=== PATIENT | female | born 1970 | race Caucasian/White ===

== ENCOUNTER 2022-06-25 16:15 | Outpatient (CLI) | payer BC, SELFPAY | END 2022-06-25 16:16 | disposition home or self-care (01) | PROVIDERS: PCP Registered Nurse; Visit Provider Registered Nurse | DX: Z01.419 Encounter for gynecological examination (general) (routine) without abnormal findings (principal); L67.9 Hair color and hair shaft abnormality, unspecified; R63.5 Abnormal weight gain; Z13.1 Encounter for screening for diabetes mellitus; Z13.6 Encounter for screening for cardiovascular disorders | CPT/HCPCS: 80061; 82947; 84443 ==

== ENCOUNTER 2022-07-01 15:03 | Outpatient (CLI) | payer BC, SELFPAY ==
[2022-07-01 19:58] LABS: Chlamydia DNA Amplified* NOT DETECTED (No Detected); GC DNA Amplified* NOT DETECTED (No Detected)
== END 2022-07-01 15:04 | disposition home or self-care (01) ==
PROVIDERS: PCP Registered Nurse; Visit Provider Registered Nurse
DX: Z11.3 Encounter for screening for infections with a predominantly sexual mode of transmission (principal)
CPT/HCPCS: 0353U; 87491; 87591

== ENCOUNTER 2022-09-11 07:11 | Day surgery (SDC) | payer BC, SELFPAY ==
[2022-09-11 07:41] LABS: Ur HCG Qualitative* Negative (Negative)
[2022-09-11 07:46] VITALS: BMI 28.8
[2022-09-11 07:49] VITALS: BP 135/75; PULSE 70; RESP 20; TEMP 36.8; O2SAT 98
[2022-09-11 07:51] LABS: Hemoglobin* 13.9 gm/dL (12.0-16.0)
[2022-09-11] MEDS: LACTATED RINGERS 1000 ML 1,000 ML 100 ML IV (08:00)
[2022-09-11] MEDS: SODIUM CHLORIDE 0.9 % (FLUSH) 10 ML SYRINGE IVF (08:01)
[2022-09-11 08:07] LABS: Creatinine* 0.7 mg/dL (0.5-1.5); Est. Creatinine Clearance* 99.37; Estimated Glomerular Filt Rate 105 ml/min
--- NOTE | 2022-09-11 08:58 | W.ANESCHARGE ---
Anesthesia Charges Start Date/Time Anesthesia Start Date: 09/11/22 Anesthesia Start Time: 09:28 Stop Date/Time Anesthesia Stop Date: 09/11/22 Anesthesia Stop Time: 10:52
[2022-09-11] MEDS: VASOPRESSIN 20 UNIT/ML INJ INJECTION (10:02)
[2022-09-11] MEDS: BUPIVACAINE 0.5% 30 ML INJECTION (10:03)
[2022-09-11] MEDS: FERRIC SUBSULFATE 8 GM VIAL 1 VIAL TOPICAL (10:25)
[2022-09-11 10:50] VITALS: BP 132/82; PULSE 72; RESP 20; TEMP 36; O2SAT 98
--- NOTE | 2022-09-11 10:58 | P.GYNPRC_ITS ---
Procedure Note Time Seen by Provider: 08:30 Date Seen: 09/11/22 Procedure Details: COLD KNIFE CONIZATION PROCEDURE NOTE PREOPERATIVE DIAGNOSIS: 1. Cervical dysplasia: HSIL pap, +HPV POSTOPERATIVE DIAGNOSIS: Same PROCEDURE: 1. EUA 2. Colposcopy 3. Cold knife cone 4. ECC 5. Endometrial biopsy SURGEON: Flaquita Suarez MD [employer] REPAIR PERSON: FLOWER Ferrell ANESTHESIA: MAC, local FINDINGS: 1. A 7 week size mobile anteverted uterus, no adnexal masses on EUA 2. Normal external genitalia 3. Colposcopy: satisfactory. Squamocolumnar junction was visualized circumferentially around the cervical os. Mosaicism and punctation noted from 3- 9 o'clock ESTIMATED BLOOD LOSS: 20 cc COMPLICATIONS: None PREOP ANTIBIOTIC: Not indicated SPECIMEN: 1. Conization specimen 2. Endocervical curetting 3. Endometrial curetting INDICATIONS: 52yo G5 P 3023, with diagnosis of high grade cervical dysplasia and +HPV18. Procedure: The patient was taken to the operating room where MAC was administered. She was placed in dorsal lithotomy position in candy cane stirrups, taking care to avoid lower extremity hyperextension, hyperflexion or compression. A surgical time-out was performed with the entire operative staff per protocol. The grounding pad is placed on her thigh. The cervix was then painted with Lugol's Solution and the lesion borders visualized. EUA revealed the above findings. She was prepared and draped in normal sterile fashion for the cervical conization procedure. A sterile speculum was inserted into the vagina to visualize the cervix. A paracervical block was performed with 10 cc of 1% lidocaine. The cervix was infiltrated with 10 cc of dilute vasopressin in a circumferential fashion creating a wheal under the mucosa. 0-vicryl stay stitches were placed at 3 and 9 o'clock. 12 o'clock was marked with a stitch and used for traction. An 11 blade was used to remove the entire circumference of lesion of the cervix. ECC was performed. Endometrial biopsy with endometrial pipelle and banjo curette was also performed. For hemostasis, the ball tip electrode was then attached and the unit set to coagulate and the base of the cervix and endocervix were cauterized. Additional hemostasis was provided with application of Monsel's solution to the cervix. All instruments were removed. Specimens were sent to pathology (cervical cone, ECC and endometrial biopsy) The patient tolerated the procedure well. Sponge, lap and needle counts were correct x 2. The patient was taken to the recovery room in stable condition.
[2022-09-11 11:05] VITALS: BP 132/82; PULSE 48; RESP 16; O2SAT 97
[2022-09-11 11:20] VITALS: BP 123/88; PULSE 55; RESP 16; TEMP 36.4; O2SAT 97
[2022-09-11 11:38] VITALS: BP 122/87; PULSE 58; RESP 16; O2SAT 98
[2022-09-11 12:00] VITALS: BP 118/85; PULSE 54; RESP 16; TEMP 36.4; O2SAT 98
--- NOTE | 2022-09-19 13:57 | W.ANESCHARGE ---
Anesthesia Charges Start Date/Time Anesthesia Start Date: 09/11/22 Anesthesia Start Time: 09:28 Stop Date/Time Anesthesia Stop Date: 09/11/22 Anesthesia Stop Time: 10:52
== END 2022-09-11 12:09 | disposition home or self-care (01) ==
PROVIDERS: PCP Registered Nurse; Visit Provider Obstetrics & Gynecology
PROC: 0UBC7ZZ Excision of Cervix, Via Natural or Artificial Opening (ICD-10-PCS; CPT 57520; principal; 2022-09-11 08:45)
DX: C53.0 Malignant neoplasm of endocervix (principal); R87.613 High grade squamous intraepithelial lesion on cytologic smear of cervix (HGSIL)
CPT/HCPCS: 57520; 00940; 36415; 81025; 82565; 85018; 88305; 88307; 88342; A9270; J2250; J2704; J3010; J3490; J7120

== ENCOUNTER 2022-09-26 14:33 | Outpatient (CLI) | payer BC, SELFPAY ==
--- NOTE | 2022-09-26 15:00 | CRLHL7_ITS ---
For Patients: As a result of the Century Cures Act, medical imaging exams and procedure reports are released immediately into your electronic medical record. You may view this report before your referring provider. If you have questions, please contact your health care provider. CLINICAL INFORMATION: Malignant neoplasm of the cervix/uterus. TECHNIQUE: Contrast-enhanced CT of the chest, abdomen and pelvis was obtained. Coronal and sagittal reformatted images were obtained. Contrast: 95 mL of Isovue 370 intravenous contrast was injected uneventfully prior to image acquisition. Radiation Dose Estimate (Total Exam DLP): 1107 mGy-cm. COMPARISON: None. FINDINGS: Chest: Thyroid: Multiple hypoattenuated right thyroid nodules measuring up to 7 mm. Lungs: 4 mm right middle lobe pulmonary nodule (series 3, image 55). 4 mm calcified granuloma in the lingula. Mild bibasilar dependent atelectatic changes. No focal airspace opacities or pleural effusions. Heart/Pericardium: Unremarkable. Lymph Nodes: No significant axillary, mediastinal, or hilar lymphadenopathy. Abdomen/Pelvis: Liver: Noncirrhotic morphology. Mild intrahepatic bile duct distention may represent reservoir effect in post cholecystectomy state. Gallbladder: Absent. Spleen: Unremarkable. Adrenal glands: Mild left adrenal gland thickening without discrete nodule. Kidneys: Enhance symmetrically without hydronephrosis. 1.4 cm left upper pole cyst. Pancreas: Unremarkable. Lymph nodes: No retroperitoneal, mesenteric, inguinal, or pelvic adenopathy by CT criteria. Vascular: Abdominal aorta normal in caliber. Bowel: Evaluation is limited without enteric contrast. Grossly unremarkable. Urinary bladder: Limited evaluation due to underdistention. No gross pathology. Reproductive structures: Intrauterine device is present. No abdominal/pelvis ascites or free intraperitoneal air. Musculoskeletal: Visualized osseous structures demonstrate degenerative changes in the spine. No focal lytic or blastic lesions. IMPRESSION: 1. 4 mm right middle lobe pulmonary nodule which is technically indeterminate. Recommend follow-up evaluation with chest CT in 3-6 months to assure stability. 2. Otherwise no evidence of metastatic disease in the chest, abdomen, and pelvis. Please note that all CT scans at this facility use dose modulation, iterative reconstruction, and/or weight-based dosing when appropriate to reduce radiation dose to as low as reasonably achievable. Dictated by Juan Luis Earl MD @ 09/27/2022 3:52:14 PM (Electronically Signed)
== END 2022-09-26 14:34 | disposition home or self-care (01) ==
LOC: CT 14:34
PROVIDERS: PCP Nurse Practitioner Family; Visit Provider Obstetrics & Gynecology
DX: C53.9 Malignant neoplasm of cervix uteri, unspecified (principal); R91.8 Other nonspecific abnormal finding of lung field
CPT/HCPCS: 71260; 74177; Q9967

== ENCOUNTER 2022-10-06 09:02 | Outpatient (CLI) | payer BC, SELFPAY | END 2022-10-06 09:03 | disposition home or self-care (01) | PROVIDERS: PCP Nurse Practitioner Family; Visit Provider Nurse Practitioner Family | DX: Z01.818 Encounter for other preprocedural examination (principal) | CPT/HCPCS: 80048 ==

== ENCOUNTER 2022-10-08 09:25 | Outpatient (CLI) | payer BC, SELFPAY ==
--- NOTE | 2022-10-08 09:45 | CRLHL7_ITS ---
For Patients: As a result of the Cures Act, medical imaging exams and procedure reports are released immediately into your electronic medical record. You may view this report before your referring provider. If you have questions, please contact your health care provider. INDICATION: Follow-up thyroid nodules identified on a recent CT of September 26, 2022. TECHNIQUE: Directed thyroid ultrasound. FINDINGS: The right thyroid lobe measures 4.7 x 1.6 x 1.7 cm. The left thyroid lobe measures 5.4 x 1.4 x 1.4 cm. The isthmus measures 0.2 cm in thickness. There are multiple small bilateral thyroid nodules. The largest on the right is in the superior pole measuring 1.4 x 0.9 x 1.2 cm, largely solid, well-circumscribed and relatively homogeneously isoechoic. Adjacent to this larger nodule is a 9 x 4 x 7 mm solid, well-circumscribed nodule. Within the inferior pole, there is a 7 x 7 x 7 mm well-circumscribed solid nodule, isoechoic. Within the left thyroid gland, the largest nodule is in the upper pole measuring 1.2 x 0.6 x 1.1 cm and is both cystic and solid but relatively isoechoic to slightly hypoechoic. Within the inferior left thyroid gland, there are two adjacent solid nodules, each of which measure up to 8 mm. IMPRESSION: 1. Multiple bilateral thyroid lobe nodules, two on the right measuring less than 1 cm and two on the left measuring less than 1 cm. 2. The largest nodule in the superior pole on the right measures up to 1.4 cm and on the left in the superior pole 1.2 cm. TI-RADS 3 for the upper pole right thyroid lobe nodule. TI-RADS 2 for the upper pole left thyroid lobe nodule. ACR TI-RADS [email or web address] TR1: Benign No FNA TR2: Not Suspicious No FNA TR3: Mildly Suspicious FNA if greater than or equal to 2.5 cm Follow if greater than or equal to 1.5 cm TR4: Moderately Suspicious FNA if greater than or equal to 1.5 cm Follow if greater than or equal to 1 cm TR5: Highly Suspicious FNA if greater than or equal to 1 cm Follow if greater than or equal to 0.5 cm Dictated by Lawrence Ugarte MD @ 10/08/2022 12:04:57 PM (Electronically Signed)
== END 2022-10-08 09:26 | disposition home or self-care (01) ==
LOC: US 09:26
PROVIDERS: PCP Nurse Practitioner Family; Visit Provider Nurse Practitioner Family
DX: E04.1 Nontoxic single thyroid nodule (principal)
CPT/HCPCS: 76536

== ENCOUNTER 2023-01-26 15:07 | Outpatient (CLI) | payer BC, SELFPAY ==
--- NOTE | 2023-01-26 15:00 | CRLHL7_ITS ---
For Patients: As a result of the Century Cures Act, medical imaging exams and procedure reports are released immediately into your electronic medical record. You may view this report before your referring provider. If you have questions, please contact your health care provider. INDICATION: History of cervical cancer. Follow-up pulmonary nodules on prior chest CT. TECHNIQUE: Contrast-enhanced chest CT with coronal and sagittal reformations. 75 mL Isovue-370. COMPARISON: 09/26/2022. FINDINGS: Few subcentimeter hypoattenuating thyroid nodules unchanged. Normal course and caliber of the thoracic aorta. Normal caliber main pulmonary artery. No significant coronary artery calcification. Normal heart size. Normal esophagus. No mediastinal or axillary lymphadenopathy. Central airways are patent. No pleural effusion or pneumothorax. No pulmonary opacities. 4 mm right middle lobe pulmonary nodule (series 3, image 55) unchanged. Calcified granuloma left upper lobe (series 3, image 39) unchanged. No new or enlarging pulmonary nodule. Limited images of the upper abdomen are unremarkable. No acute or aggressive osseous abnormality. IMPRESSION: 1. Stable 4 mm right middle lobe pulmonary nodule. No new or enlarging pulmonary nodules. 2. Otherwise, no evidence of metastatic disease in the chest. Please note that all CT scans at this facility use dose modulation, iterative reconstruction, and/or weight-based dosing when appropriate to reduce radiation dose to as low as reasonably achievable. Dictated by Jose Francisco Avitia MD @ 01/28/2023 7:56:01 AM (Electronically Signed)
== END 2023-01-26 15:08 | disposition home or self-care (01) ==
PROVIDERS: PCP Nurse Practitioner Family
DX: C53.9 Malignant neoplasm of cervix uteri, unspecified (principal); R91.8 Other nonspecific abnormal finding of lung field
CPT/HCPCS: 71260; Q9967

== ENCOUNTER 2023-03-04 08:53 | Outpatient (CLI) | payer BC, SELFPAY ==
--- NOTE | 2023-03-04 08:45 | CRLHL7_ITS ---
For Patients: As a result of the Century Cures Act, medical imaging exams and procedure reports are released immediately into your electronic medical record. You may view this report before your referring provider. If you have questions, please contact your health care provider. Indication: Abdominal pain Technique: Grayscale and color Doppler ultrasound of the right lower abdominal wall in the area of concern. Comparison: CT 09/26/2022 Findings: Targeted sonogram demonstrates a hernia defect containing a loop of bowel within the right lower abdominal wall. There any defect measures approximately 8 millimeters and the hernia itself measures approximately 4 centimeters. No abnormal vascularity. Impression: Right-sided abdominal wall hernia containing bowel loops. Dictated by Frederic Christina MD @ 03/04/2023 10:40:01 AM (Electronically Signed)
== END 2023-03-04 08:54 | disposition home or self-care (01) ==
LOC: US 08:53
PROVIDERS: PCP Nurse Practitioner Family; Visit Provider Registered Nurse
DX: R10.9 Unspecified abdominal pain (principal); K43.9 Ventral hernia without obstruction or gangrene
CPT/HCPCS: 76705

== ENCOUNTER 2023-03-24 09:40 | Outpatient (CLI) | payer BC, SELFPAY | END 2023-03-24 09:41 | disposition home or self-care (01) | PROVIDERS: PCP Nurse Practitioner Family; Visit Provider Nurse Practitioner Family | DX: Z01.818 Encounter for other preprocedural examination (principal) | CPT/HCPCS: 80053; 85025 ==

== ENCOUNTER 2023-03-30 09:52 | Outpatient (CLI) | payer BC, SELFPAY ==
--- NOTE | 2023-03-30 10:00 | CRLHL7_ITS ---
For Patients: As a result of the Century Cures Act, medical imaging exams and procedure reports are released immediately into your electronic medical record. You may view this report before your referring provider. If you have questions, please contact your health care provider. INDICATION: Pulmonary nodule TECHNIQUE: CT chest without contrast. COMPARISON: CT 01/26/2023 FINDINGS: Small thyroid nodules. Cardiovascular structures: Heart size is normal. Thoracic aorta and main pulmonary artery are normal in caliber. Mediastinum and ned: No sign of mass or adenopathy. Lungs: Bandlike opacity left lung apex unchanged likely reflects an area of scarring A granuloma in the left upper lobe 4 millimeter right middle lobe nodule on is unchanged. Pleura and pericardium: No effusions. Chest wall and axilla: No mass or adenopathy. Bones: No significant findings. Upper abdomen: Cholecystectomy low-attenuation lesion left kidney incompletely assessed may represent a cyst IMPRESSION: 4 millimeter right middle lobe nodule unchanged. No new nodules are seen. [employer] SOLID NODULES: SINGLE LOW RISK - Nodule less than 6 mm: No routine follow-up. - Nodule 6-8 mm: CT at 6-12 months, then consider CT at 18-24 months. - Nodule greater than 8 mm: Consider CT at 3 months, PET-CT or tissue sampling. SINGLE HIGH RISK - Nodule less than 6 mm: Optional CT at 12 months. - Nodule 6-8 mm: CT at 6-12 months, then CT at 18-24 months. - Nodule greater than 8 mm: Consider CT at 3 months, PET-CT or tissue sampling. MULTIPLE LOW RISK - Nodule less than 6 mm: No routine follow-up. - Nodule 6-8 mm: CT at 3-6 months, then consider CT at 18-24 months. - Nodule greater than 8 mm: CT at 3-6 months, then consider CT at 18-24 months. MULTIPLE HIGH RISK - Nodule less than 6 mm: Optional CT at 12 months. - Nodule 6-8 mm: CT at 3-6 months, then at 18-24 months. - Nodule greater than 8 mm: CT at 3-6 months, then at 18-24 months. [employer]UID[employer] SUBSOLID NODULES: GROUND GLASS - Nodule less than 6 mm: No routine follow-up. - Nodule greater than 6 mm: CT at 6-12 months to confirm persistence, then CT every 2 years until 5 years. PART SOLID - Nodule less than 6 mm: No routine follow-up. - Nodule greater than 6 mm: CT at 3-6 months to confirm persistence. If unchanged and solid component remains less than 6 mm, annual CT should be performed for 5 years. MULTIPLE - Nodule less than 6 mm: CT at 3-6 months. If stable, consider CT at 2 and 4 years. - Nodule greater than 6 mm: CT at 3-6 months. Subsequent management based on the most suspicious nodule(s). Please note that all CT scans at this facility use dose modulation, iterative reconstruction, and/or weight-based dosing when appropriate to reduce radiation dose to as low as reasonably achievable. Dictated by Diane Loco MD @ 04/01/2023 7:05:19 AM (Electronically Signed)
== END 2023-03-30 09:53 | disposition home or self-care (01) ==
LOC: CT 09:53
PROVIDERS: PCP Nurse Practitioner Family; Visit Provider Registered Nurse
DX: R91.1 Solitary pulmonary nodule (principal); R91.8 Other nonspecific abnormal finding of lung field
CPT/HCPCS: 71250

== ENCOUNTER 2023-04-02 08:10 | Day surgery (SDC) | payer BC, SELFPAY ==
[2023-04-02] VITALS (16 sets, daily range): BP systolic 111–148; BP diastolic 70–92; PULSE 49–74; RESP 12–18; TEMP 36.3–36.6; O2SAT 92–100; BMI 29.3
[2023-04-02] MEDS: LACTATED RINGERS 1000 ML 1,000 ML 100 ML IV (08:25)
[2023-04-02] MEDS: SODIUM CHLORIDE 0.9 % (FLUSH) 10 ML SYRINGE IVF (08:25)
--- NOTE | 2023-04-02 09:53 | W.PM.H&PU ---
History & Physical Update History & Physical Update H&P Reviewed and patient assessed: No changes noted
[2023-04-02] MEDS: CLINDAMYCIN 900 MG/50 ML-D5W IVPB (10:20)
[2023-04-02] MEDS: BUPIVACAINE 0.25% 30 ML INJECTION (10:26)
--- NOTE | 2023-04-02 10:36 | W.ANESCHARGE ---
Anesthesia Charges Start Date/Time Anesthesia Start Date: 04/02/23 Anesthesia Start Time: 10:02 Stop Date/Time Anesthesia Stop Date: 04/02/23 Anesthesia Stop Time: 12:37
--- NOTE | 2023-04-02 10:37 | P.NB_ITS ---
Nerve Block Nerve Block Time Seen by Provider: 10:08 Date Seen: 04/02/23 Type of block requested by surgeon for post-operative analgesia: TAP Side: bilateral Time out performed: Yes Verification of patient name: Yes Verification of date of : Yes Site marking: site marked Name of person performing procedure: Dyllan Continuous monitoring Was continuous monitoring of O2 sat, B/P, cardiac sonographer, recorded every 15 minutes?: Yes Procedure Checklist: sterile prep, needles and gloves Ultrasound guided. Images saved: Yes Medications given in 5ml increments after negative aspiration: Marcaine %: 0.25 mL: 30 Needle gauge: 20 and Exparel mL: 10 Patient tolerated procedure well: Yes Additional comments: Needle noted between internal oblique and transversus abdominus. Local spread visualized Block Charges Block Charge (with Pro Fee): TAP Bilateral Use of Ultrasound Machine for Block: Yes- US Guidance/pain block
--- NOTE | 2023-04-02 12:44 | W.ANESCHARGE ---
Anesthesia Charges Start Date/Time Anesthesia Start Date: 04/02/23 Anesthesia Start Time: 10:02 Stop Date/Time Anesthesia Stop Date: 04/02/23 Anesthesia Stop Time: 12:37
--- NOTE | 2023-04-02 12:50 | P.GSOP_ITS ---
Operative Note Date of procedure: 04/02/23 Pre-op diagnosis: Incisional hernia Post-op diagnosis: Same Type of Procedure: Laparoscopic repair of 6 cm incisional hernia with mesh. Indications: The patient is a 53-year-old female who underwent a hysterectomy last summer. She recently developed an abdominal wall bulge and was clinically found to have a hernia. After discussion of options, because she is fairly symptomatic from the hernia, she elected to have this repaired. Procedure Description: After discussing the risks and benefits of the procedure, the patient signed informed consent.? The operative site was marked and the patient was brought to the operating room and placed on the operating table in supine position.? Care was taken to pad the patient's pressure points.?? The patient was then intubated by anesthesia.??A tap block was performed by Anesthesia for intraoperative and postoperative pain control. Please see their notes for details. The operative site was then prepped and draped in the usual sterile fashion.? A time-out was then performed. Entrance to the abdomen was gained in the left upper quadrant using a Visiport technique. The abdomen was insufflated and briefly surveyed. There were no signs of injury. There was a sizable hernia in the expected location. A small amount of omental fat was adherent to this. A 5 mm port was placed in the left lateral abdomen. Through this a scissor was used to take down the filmy omental adhesions to the abdominal wall. I was then able to use a grasper to bluntly dissect out the remaining adhesions from the anterior abdominal wall, exposing the hernia as well as the superior aspect of the incision. I placed an additional port in the left lower abdomen. This was done under direct vision as well. The hernia measured 6 cm wide by 3 cm long. This was near the umbilicus, just to the right of it. The at the superior aspect of the patient's surgical incision, below the hernia the fascia did appear to be thinning and bowed out slightly. This was not a true hernia, however the fascia appeared to be weakend here. Next, I grasped the hernia sac from within the hernia and incised this using cautery. Using LigaSure, I removed the hernia sac from within the hernia. This was removed from the abdomen and discarded. Using V lock suture, I decreased the intra-abdominal pressure and closed the fascial defect in a running fashion with 2 separate sutures. Once that was done, I obtained a piece of Ventralight ST mesh with [employer] positioning System. I used a 15 x 20 cm piece of mesh, however this was trimmed to be approximately 15 cm in circumference. This allowed appropriate overlap over the lateral edges of the hernia and also covers the superior aspect of the incision where the fascia appeared weakend and bowed out in the midline. This was advanced into the abdomen after up sizing the lateral port to a 10 mm port. A skin yousif was created in the center of the desired area of mesh placement and a Lefty-Alexandra device was used to grasp the suture to position the mesh appropriately overlying the hernia as well as overlapping the superior incision just below the hernia. It was noted that the 10 mm port site sat underneath the mesh so prior to tacking the port in place, I removed the 10 mm port and closed the fascial opening with a Lefty-Alexandra device using 0 Vicryl suture. Once this was done, an absorbable Tacker was then used to tack the mesh in place circumferentially. Of note, before tacking the mesh in place the intra-abdominal pressure was decreased to 9 mm Hg. Appropriately affixing the mesh to the abdominal wall did necessitate placement of an additional 5 mm port in the right abdomen. The mesh appeared to lay flat at the end of the procedure. Hemostasis appeared excellent. The abdomen was desufflated and the ports removed. The incisions were closed with 4-0 Monocryl suture and glue was applied. The patient was then woken and transported to the recovery area in stable condition. ? The patient tolerated the procedure well. Findings: 3 x 6 cm ventral hernia at the superior aspect of the patient's incision, with an additional area of narrowing and bowing out just inferior to this. Anesthesia: GETA Surgeon: Emma Kirkpatrick MD Estimated blood loss (mL): 5 Condition: stable Disposition: PACU
[2023-04-02] MEDS: fentaNYL 100 MCG/2 ML inj 50 MCG IVP ×2 (12:54→12:59)
[2023-04-02] MEDS: HYDROCODONE-ACETAMIN 5-325 MG 1 TAB PO (14:05)
[2023-04-02] MEDS: KETOROLAC 15 MG/ML inj IVP (14:05)
== END 2023-04-02 15:10 | disposition home or self-care (01) ==
PROVIDERS: PCP Nurse Practitioner Family; Visit Provider Surgery
PROC: 0WQF4ZZ Repair Abdominal Wall, Percutaneous Endoscopic Approach (ICD-10-PCS; CPT 49593; principal; 2023-04-02 10:45)
DX: K43.2 Incisional hernia without obstruction or gangrene (principal); G89.18 Other acute postprocedural pain
CPT/HCPCS: 49593; 00832; 64488; 76942; A4467; A9270; C1781; C9290; J0330; J0461; J0665; J0736; J1885; J2250; J2371; J2704; J3010; J7120

== ENCOUNTER 2023-06-30 14:36 | Outpatient (CLI) | payer BC, SELFPAY ==
--- NOTE | 2023-06-30 14:40 | MM_ITS ---
Patient: ROGER BOOKER Facility:?[facility] Patient ID:?[id number] Site Patient ID:?[id number]. Site :?[id number] Study:?XRay-Brachial Plexus Bilateral 3D screening mammogram -06/30/2023 2:57:56 PM Ordering Physician:Nieves Final Report: BILATERAL SCREENING MAMMOGRAM WITH COMPUTER-AIDED DETECTION AND TOMOSYNTHESIS TECHNIQUE: CC and MLO views were obtained. These mammographic images have been obtained using full-field digital technique. These mammographic images were interpreted with the benefit of computer-aided detection. Breast Tomosynthesis was used in this interpretation. COMPARISON FILM: Baseline. FINDINGS: There are scattered areas of fibroglandular density. IMPRESSION: There is no radiographic evidence for malignancy. ASSESSMENT: BI-RADS Category 2: Benign RECOMMENDATION: Routine screening mammogram in 1 year. A lay language report of this examination will be provided to the patient. Frederic Christina M.D. Diagnostic Radiologist [email or web address] LYN/sp R& Transcribed: 4:30 p.m. SP/Dictated by: Frederic Christina MD @ 07/01/2023 11:11:00 AM Signed by:?Frederic Christina MD @07/02/2023 5:30:00 AM (Electronic Signature)
== END 2023-06-30 14:37 | disposition home or self-care (01) ==
LOC: MAMMO 14:37
PROVIDERS: PCP Nurse Practitioner Family; Visit Provider Nurse Practitioner Family
DX: Z12.31 Encounter for screening mammogram for malignant neoplasm of breast (principal)
CPT/HCPCS: 77063; 77067

== ENCOUNTER 2023-08-10 07:20 | Outpatient (CLI) | payer BC, SELFPAY ==
--- NOTE | 2023-08-10 08:55 | W.ANESCHARGE ---
Anesthesia Charges Start Date/Time Anesthesia Start Date: 08/10/23 Anesthesia Start Time: 08:21 Stop Date/Time Anesthesia Stop Date: 08/10/23 Anesthesia Stop Time: 08:45
--- NOTE | 2023-08-10 09:13 | W.ANESCHARGE ---
Anesthesia Charges Start Date/Time Anesthesia Start Date: 08/10/23 Anesthesia Start Time: 08:21 Stop Date/Time Anesthesia Stop Date: 08/10/23 Anesthesia Stop Time: 08:45
== END 2023-08-10 07:21 | disposition home or self-care (01) ==
LOC: OP CLINIC 07:20
PROVIDERS: PCP Nurse Practitioner Family; Visit Provider Surgery
DX: Z12.11 Encounter for screening for malignant neoplasm of colon (principal); K64.8 Other hemorrhoids; K57.30 Diverticulosis of large intestine without perforation or abscess without bleeding
CPT/HCPCS: 00811; 00812; 45378; J2704

== ENCOUNTER 2023-11-09 10:13 | Outpatient (CLI) | payer BC, SELFPAY ==
--- NOTE | 2023-11-09 10:15 | CRLHL7_ITS ---
For Patients: As a result of the Cures Act, medical imaging exams and procedure reports are released immediately into your electronic medical record. You may view this report before your referring provider. If you have questions, please contact your health care provider. INDICATION: Thyroid nodule COMPARISON: 08/19/2023, 06/15/2023 TECHNIQUE: Renee scale and color Doppler images were acquired of the thyroid gland. FINDINGS: Solid and cystic nodule left thyroid lobe, TR 3, measures 11 x 5 x 9 millimeters. Mostly solid nodule left thyroid lobe inferior pole measures 10 x 8 x 9 millimeters, TR 4. Hypoechoic nodule left thyroid lobe measures 9 x 5 x 7 millimeters, TR 4. Also solid nodule right thyroid lobe measures 10 x 6 x 7 millimeters, TR 4. Slightly hyperechoic nodule right thyroid lobe measures 8 x 6 x 5 millimeters, TR 3. Mostly solid nodule inferior pole right thyroid lobe previously biopsied measures 1.4 x 1.4 x 1.1 cm, previously measuring 1.5 x 1.7 x 1.9 cm. The right lobe measures 5.6 x 1.7 x 2.0 cm and the left lobe measures 5.9 x 1.4 x 1.9 cm in size. The color Doppler images demonstrate normal vascularity. There is no evidence of cervical lymphadenopathy or parathyroid mass. IMPRESSION: Stable bilateral thyroid nodules. Dictated by Frederic Christina MD @ 11/09/2023 11:35:35 AM (Electronically Signed)
== END 2023-11-09 10:14 | disposition home or self-care (01) ==
LOC: US 10:13
PROVIDERS: PCP Nurse Practitioner Family; Visit Provider Nurse Practitioner Family
DX: E04.1 Nontoxic single thyroid nodule (principal)
CPT/HCPCS: 76536

== ENCOUNTER 2024-01-04 07:44 | Outpatient (CLI) | payer BC, SELFPAY ==
--- NOTE | 2024-01-04 08:00 | CRLHL7_ITS ---
For Patients: As a result of the Century Cures Act, medical imaging exams and procedure reports are released immediately into your electronic medical record. You may view this report before your referring provider. If you have questions, please contact your health care provider. INDICATION: Right lower quadrant abdominal pain, evaluate for cancer recurrence TECHNIQUE: CT chest, abdomen and pelvis acquired with 97 mL Isovue 370 contrast. COMPARISON: 03/30/[address], 01/26/[address], 09/26/[address] FINDINGS: CHEST: Cardiovascular structures: Heart size is normal. Thoracic aorta and main pulmonary artery are normal in caliber. Mediastinum and ned: No mass or adenopathy. Mildly heterogeneous thyroid as before. Lungs and pleura: Stable 3-4 mm nodule lateral right upper lobe image 59. Benign calcified granuloma in the left upper lobe. No new nodules. Chest wall and axilla: No mass or adenopathy. Bones: No suspicious bone lesions. Unremarkable for age. ABDOMEN AND PELVIS: Liver: Unremarkable. Gallbladder and bile ducts: Cholecystectomy. Pancreas: Unremarkable. Spleen: Unremarkable. Adrenal glands: Unremarkable. Kidneys: Left renal cyst. 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 Vascular structures: Unremarkable. Lymph nodes: Unremarkable. Miscellaneous: Ventral hernia repair. Pelvic Organs: Hysterectomy. Bones: No suspicious bone lesions. Unremarkable for age. IMPRESSION: 1. No evidence for recurrent or metastatic disease. 2. Congenital malrotation of the bowel. Please note that all CT scans at this facility use dose modulation, iterative reconstruction, and/or weight-based dosing when appropriate to reduce radiation dose to as low as reasonably achievable. Dictated by Julio Obando MD @ 01/05/2024 12:38:03 PM (Electronically Signed)
== END 2024-01-04 07:45 | disposition home or self-care (01) ==
PROVIDERS: PCP Nurse Practitioner Family; Visit Provider Nurse Practitioner Family
DX: R10.31 Right lower quadrant pain (principal); Q43.3 Congenital malformations of intestinal fixation
CPT/HCPCS: 71260; 74177; Q9967

== ENCOUNTER 2024-01-11 12:54 | Emergency (ER) | payer BC, SELFPAY ==
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
[2024-01-11 13:10] VITALS: BP 141/88; PULSE 80; RESP 16; TEMP 36.6; O2SAT 97; BMI 28.0
--- NOTE | 2024-01-11 13:30 | CRLHL7_ITS ---
For Patients: As a result of the Century Cures Act, medical imaging exams and procedure reports are released immediately into your electronic medical record. You may view this report before your referring provider. If you have questions, please contact your health care provider. Indication: L SIDED ABD PAIN. VOMITING Technique: CT abdomen/pelvis with IV contrast, 95 mL Isovue 370 Comparison: CT chest/abdomen/pelvis on January 04, 2024 Findings: LOWER THORAX: No acute abnormality. Stable 3-4 mm solid pulmonary nodule in the right middle lobe. ABDOMEN AND PELVIS: Liver: Unremarkable. Gallbladder and bile ducts: Cholecystectomy. No significant biliary ductal dilatation. Pancreas: Unremarkable. Spleen: Unremarkable. Adrenal glands: Unremarkable. Kidneys: Stable simple appearing left renal cyst. No renal calculi or hydronephrosis. GI tract: No evidence of bowel obstruction or inflammation. 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 Vascular structures: Unremarkable. Lymph nodes: Unremarkable. Miscellaneous: Prior ventral abdominal wall hernia repair. Pelvic Organs: Hysterectomy. Bones: No suspicious bone lesions. Unremarkable for age. Impression: No CT evidence of an acute process involving the abdomen or pelvis. Please note that all CT scans at this facility use dose modulation, iterative reconstruction, and/or weight-based dosing when appropriate to reduce radiation dose to as low as reasonably achievable. Dictated by Marlon Sahu MD @ 01/11/2024 3:09:23 PM (Electronically Signed)
[2024-01-11 13:56] LABS: Lactate* 0.8 mmol/L (0.5-1.9)
[2024-01-11 14:04] LABS: Appearance Urine Clear (Clear); Bilirubin Urine Negative (Negative); Blood Urine Trace-intact (Negative); Color Urine Yellow (Yellow); Glucose Urine Negative (Negative); Ketones Urine Negative (Negative); Leukocyte Esterase Urine Negative (Negative); Nitrite Urine Negative (Negative); Protein Urine Negative (Negative); Urobilinogen Urine 0.2 (0.2-1.0); pH Urine 5.5 (5.0-8.5)
[2024-01-11 14:16] LABS: RBC Urine 0-2 (0-2); Squamous Epithelial Cell Urine Few (None-Few); WBC Urine 0-2 (0-5)
[2024-01-11 14:20] LABS: Albumin* 4.7 g/dL (3.3-5.0); Basophils Absolute Auto 0.04 K/uL (0.00-0.30); Basophils Percent Auto 0.6 % (0.0-3.0); Chloride* 100 mmol/L (96-114); Eosinophils Absolute Auto 0.22 K/uL (0.00-0.50); Eosinophils Percent Auto 3.4 % (0.0-7.0); Hematocrit 43.5 % (33.0-51.0); Hemoglobin* 14.3 gm/dL (12.0-16.0); Immature Granulocytes Abs Auto 0.01 K/uL (0.00-0.30); Immature Granulocytes Pct Auto 0.2 %; Lymphocytes Absolute Auto 2.56 K/uL (0.90-2.90); Lymphocytes Percent Auto 40.1 % (20-44); Mean Corpuscular HGB Conc 33 gm/dL (32-36); Mean Corpuscular Hemoglobin 29 pg (26-34); Mean Corpuscular Volume 88 fL (80-100); Monocytes Percent Auto 9.1 % (0.0-11.0); Neutrophils Absolute Auto 2.97 K/uL (1.7-7.0); Neutrophils Percent Auto 46.6 % (42.0-72.0); Platelet Count* 377 K/uL (140-440); RDW Coefficient of Variation % 13.6 % (11.5-15.5); Red Blood Count 4.94 m/uL (4.00-5.20); White Blood Count* 6.38 K/uL (4.50-11.00)
[2024-01-11 14:21] LABS: Potassium* 3.4 mmol/L (3.6-5.1); Sodium* 135 mmol/L (135-149)
[2024-01-11 14:23] LABS: Alkaline Phosphatase* 72 U/L (40-150); Anion Gap 9 mEq/L (7-15); Aspartate Amino Transferase* 31 U/L (12-35); Bilirubin Total* 0.3 mg/dL (0.1-1.5); Blood Urea Nitrogen* 12 mg/dL (7-30); Carbon Dioxide* 26 mmol/L (20-32); Creatinine* 0.7 mg/dL (0.5-1.5); Est. Creatinine Clearance* 101.66; Estimated Glomerular Filt Rate 104 ml/min; Lipase* 72 U/L (23-300); Total Protein* 7.9 g/dL (6.0-8.3)
[2024-01-11 14:24] LABS: Alanine Aminotransferase* 21 U/L (4-35); Calcium* 9.6 mg/dL (8.4-10.6); Glucose* 92 mg/dL (60-115)
[2024-01-11 14:25] LABS: Slide Review Reflex No
[2024-01-11 16:11] VITALS: BP 138/85; PULSE 58; RESP 16
== END 2024-01-11 16:13 | disposition home or self-care (01) ==
PROVIDERS: Emergency Provider Emergency Medicine; PCP Nurse Practitioner Family
DX: R10.31 Right lower quadrant pain (principal)
CPT/HCPCS: 36415; 74177; 80053; 81001; 83605; 83690; 85025; 87045; 87046; 87427; 87493; 99283; 99284; Q9967

== ENCOUNTER 2024-01-28 12:58 | Outpatient (CLI) | payer BC, SELFPAY ==
--- NOTE | 2024-01-28 14:00 | CRLHL7_ITS ---
For Patients: As a result of the Century Cures Act, medical imaging exams and procedure reports are released immediately into your electronic medical record. You may view this report before your referring provider. If you have questions, please contact your health care provider. INDICATION: Diarrhea and right lower quadrant pain TECHNIQUE: Volumetric helical scanning of the abdomen and pelvis was performed utilizing an enterography protocol. The patient ingested 1350 cc of Volumen contrast material prior to scanning. 105 cc of Isovue 370 contrast material were administered IV. Coronal and sagittal reconstructions were obtained. COMPARISON: Abdomen/pelvis CT of 01/11/2024 FINDINGS: Developmental nonrotation of the bowel is again demonstrated with the colon in the left abdomen in the small bowel in the right. No bowel wall thickening or abnormal contrast enhancement is identified. No mesenteric edema is identified to suggest active bowel inflammation. No free intraperitoneal fluid is evident. No lymphadenopathy is demonstrated. The liver is normal in size, shape and attenuation. Postop changes of cholecystectomy are again demonstrated. No bile duct dilation is evident. The spleen is within normal limits. The adrenal glands are unremarkable. The pancreas is within normal limits. A left renal cyst is again noted. The bladder is grossly negative. Postop changes of hysterectomy are again noted. The lung bases are clear, and heart size is normal. IMPRESSION: 1. Negative CT enterography. 2. Developmental nonrotation of the bowel. 3. Post cholecystectomy and hysterectomy. Please note that all CT scans at this facility use dose modulation, iterative reconstruction, and/or weight-based dosing when appropriate to reduce radiation dose to as low as reasonably achievable. Dictated by Jose Francisco Paz MD @ 01/30/2024 8:16:09 AM (Electronically Signed)
== END 2024-01-28 12:59 | disposition home or self-care (01) ==
LOC: CT 12:59
PROVIDERS: PCP Nurse Practitioner Family; Visit Provider Student in an Organized Health Care Education/Training Program
DX: R19.7 Diarrhea, unspecified (principal); R10.31 Right lower quadrant pain; R68.81 Early satiety
CPT/HCPCS: 74177; Q9967

== ENCOUNTER 2024-09-01 14:45 | Outpatient (RCR) | payer BC, SELFPAY | END 2024-12-30 23:59 | disposition home or self-care (01) | PROVIDERS: PCP Nurse Practitioner Family; Visit Provider Surgery | DX: R10.31 Right lower quadrant pain (principal); Z51.89 Encounter for other specified aftercare | CPT/HCPCS: 97112; 97140; 97162; 97535 ==

== ENCOUNTER 2024-10-10 12:52 | Outpatient (CLI) | payer BC, SELFPAY | END 2024-10-10 12:53 | disposition home or self-care (01) | PROVIDERS: PCP Nurse Practitioner Family; Visit Provider Nurse Practitioner Family | DX: E04.1 Nontoxic single thyroid nodule (principal); R21 Rash and other nonspecific skin eruption; M25.59 Pain in other specified joint | CPT/HCPCS: 84443; 84550; 85651; 86038; 86140; 86200; 86431 ==

== ENCOUNTER 2024-12-23 16:24 | Emergency (ER) | payer BC, SELFPAY ==
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
--- OUTSIDE RECORDS SUMMARY | 2024-03-31 23:30 | XMS_ITS | Continuity of Care Document ---
Author Organization [facility] Address [address] [address] [place] [address] Phone Care Team Providers Care Call Center Trainer Name Role Phone No Information Unavailable Unavailable [...] Diagnoses Date Provider Providers Copied on Encounter [facility] [place], [address] [address], [place], [id number], [place] tel:[phone] No Information No Information Offic/outpt E&m Estab Mod-hi 2 [facility] [place], [address] [address], [place], [id number], [place] tel:[phone] [facility] GI Symptoms or Concerns (chief complaint) Lower abdominal pain 4 Familia Fallon. [address], [id number], [place]. tel:[phone] Referring Provider: Referral Self, USE FOR SELF REFERRALS. [facility] [place], [address] [address], [place], [id number], [place] tel:[phone] [facility] Noninfective gastroenteritis and colitis, unspecified 4 Eusebio Forde. [address], [id number], [place]. tel:[phone] Referring Provider: Sheri Garcia NP , [address] [place] [address], [address]. tel:[phone] [facility] [place], [address] [address], [place], [id number], [place] tel:[phone] [facility] Chronic diarrheaAbdomina l pain, unspecified abdominal location 4 Familia Fallon. [address] [place] [address], [place], [id number], [place]. tel:[phone] [facility] [place], [address] [address], [place], [id number], [place] tel:[phone] [facility] Diarrhea, unspecified type 4 Familia Fallon. [address], [id number], [place]. tel:[phone] Referring Provider: Referral Self, USE FOR SELF REFERRALS. [facility] [place], [address] [address], [place], [id number], [place] tel:[phone] [facility] Early satietyRight lower quadrant painGastritis without bleeding, unspecified chronicity, unspecified gastritis typeDisease of stomach and duodenum, unspecifiedPolyp of stomach and duodenumGastro-e sophageal reflux disease with esophagitis, without bleeding [address] [facility] [address], [id number], [place]. tel:[phone] Referring Provider: Referral Self, USE FOR SELF REFERRALS. Office Cons New/estab Mod [facility], [address] [address], [place], [id number], [place] tel:[phone] [facility] GI Symptoms or Concerns (chief complaint) Diarrhea, unspecified typeRight lower quadrant painEarly satiety 4 Familia Fallon. [address], [id number], [place]. tel:[phone] Referring Provider: Sheri Garcia NP , [address] [place] [address], [address]. tel:[phone] [facility], [address] [address], [place], [id number], [place] tel:[phone] [facility] No Information 4 Scott Wade. [address] [place] [address], [id number], [place]. tel:[phone] Family History Family Member Type Diagnosis Age [...] dose or 50 mcg/0.25mL dose administered Note: [employer] bi -directional interface ; Source: Other Registry Payers Payer name Insurance type Covered republican ID Authoriza tion(s) No Information Social History [...] SIBO. She has also been referred to [facility] pain clinic for trigger point injections [...] Currently reporting up to 18 bowel movements ([place] 6-7) per day. She denies any melena [...]
--- OUTSIDE RECORDS SUMMARY | 2024-04-18 04:45 | XMS_ITS | Continuity of Care Document ---
Author Organization [facility] enter Address [address] [place] [address] Phone Care Team Providers Care Director Of Volunteer Services Name Role Phone [facility] Unavailable Unava ilable Procedures Procedure Date TAP BLOCK UNIL BY INJECTION INJECT TRIGGER POINTS, =/> 3 Ultrasound Guidance Advance Directives Directive Yes / No Effective Date File Name No Information Encounters Encounter Description Practice Location Reason(s) For Visit Diagnoses Date Provider Providers Copied on Encounter [facility], [address] [place] [address], [id number], [place] tel:[phone] [place] [address] [address] [facility]. [address] [place] [address], [id number], [place]. tel:[phone] Referring Provider: Clint Thakkar, [address] [facility], [place], [address] . tel:[phone] [facility], [address] [place] [address], [id number], [place] tel:[phone] [place] [address] [facility]. [address] [place] [address], [id number], [place]. tel:[phone] Referring Provider: Clint Thakkar, [address] [place], [address] . tel:[phone] Family History Family Member Type Diagnosis Age At Onset No Information Payers Payer name Insurance type Covered green party ID Authoriza tiamadeo(s) [facility] [id number] Social History Type Description Quantity Date Captured Comments Sex Female Smoking Status No Information Chief Complaint And Reason For Visit No Information Reason For Referral Reason For Referral No Information History Of Present Illness Encounter Date Complaint History Of Prese nt Illness No Information Functional Status Date Functional Assessmen t No Information Instructions Date Instruction Additional Infor mation No Information Assessments Type Assessment Date No Information Patient Care Teams Name Effective Dates (start - stop) Status Members No Information
--- OUTSIDE RECORDS SUMMARY | 2024-04-18 04:45 | XMS_ITS | Continuity of Care Document ---
Author Organization [facility] enter Address [address] [place] [address] Phone Care Team Providers Care Healthcare Advisory Services Manager Name Role Phone [facility] Unavailable Unava ilable Procedures Procedure Date TAP BLOCK UNIL BY INJECTION INJECT TRIGGER POINTS, =/> 3 Ultrasound Guidance Advance Directives Directive Yes / No Effective Date File Name No Information Encounters Encounter Description Practice Location Reason(s) For Visit Diagnoses Date Provider Providers Copied on Encounter [facility], [address] [place] [address], [id number], [place] tel:[phone] [place] [address] No Information 5 [facility]. [address] [place] [address], [id number], [place]. tel:[phone] Referring Provider: Clint Thakkar, [address] [facility], [place], [address] . tel:[phone] [facility], [address] [place] [address], [id number], [place] tel:[phone] [place] [address] No Information [facility]. [address] [place] [address], [id number], [place]. tel:[phone] Referring Provider: Clint hTakkar, [address] [place], [address] . tel:[phone] Family History Family Member Type Diagnosis Age At Onset No Information Payers Payer name Insurance type Covered alliance party ID Authoriza tiamadeo(s) [facility] [id number] Social History Type Description Quantity Date [...]
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
--- OUTSIDE RECORDS SUMMARY | 2024-05-02 03:19 | XMS_ITS | Continuity of Care Document ---
Author Organization [facility] jeanette Address [address] [facility] [place] [address] Phone Care Team Providers Care Stone Polisher Hand Name Role Phone [place], Levy Olivera [...] Copied on Encounter OFFICE VISIT, EST TELEMEDICINE [facility], [address] [place] [address], [id number], [place] tel:[phone] [facility] Abdominal pain (chief complaint) Generalized abdominal painOther termite helper (current) drug therapy 5 Gabino Lockett. [address], [address], [place], [place], [id number], [place]. tel:[phone] Referring Provider: Thong Mccoy, [address] [place] [address], [address] . tel:[phone] [facility], [address] [place] [address], [id number], [place] tel:[phone] [facility] Generalized abdominal pain 5 Bijan Jaramillo. [address] [place] [address], [place], [place], [id number], [place]. tel:[phone] Referring Provider: Levy Lloyd, [address], [place], [address] . tel:[phone] OFFICE VISIT, EST TELEMEDICINE [facility], [address] [place] [address], [id number], [place] tel:[phone] [facility] Abdominal pain (chief complaint) Generalized abdominal painOther retirement (current) drug therapy 5 [place] Lockett. [address], [address], [place], [place], [id number], [place]. tel:[phone] Referring Provider: Thong Mccoy, [address] [place] [address], [address] . tel:[phone] [facility], [address] [place] [address], [id number], [place] tel:[phone] [facility] Myalgia, other site 4 Bijan Jaramillo. [address] [facility] [place], [place], [place], [id number], [place]. tel:[phone] Referring Provider: Thong Mccoy, [address] [place], [address] . tel:[phone] OFFICE/OUTPATI ENT VISIT, [facility], [address] [place], [place], [id number], [place] tel:[phone] [facility] [place] Abdominal pain (chief complaint) Generalized abdominal painMyalgia, other site 4 Gabino Lockett. [address], [address], [place], [place], [id number], [place]. tel:[phone] Referring Provider: Thong Mccoy, [address] [place], [address] . tel:[phone] Family History Family Member Type Diagnosis Age At Onset No Information Payers Payer name Insurance type Covered alliance party ID Jen blair(s) [facility] [id number] Social History Type Description Quantity Date [...] Of Treatment Date Type Action Status Goal CT-Colonography. Due on due Goal Update Social History. Due o n due Goal Unhealthy drug use screening . Due on due Goal Tobacco Use. Due on due Goal Review Allergy List. Due on due Goal Hepatitis C screening. Due o n due Goal Height. Due on d ue Goal Medication Reconciliation. D ue on due Goal PHQ-9. Due on du e Goal Weight. Due on d ue Goal Zoster vaccine (). Due on due Goal FIT-DNA. Due on due Goal HPV. Due on due Goal FIT. Due on due Goal Lipid panel. Due on due Goal FIT. Due on due Goal Review Allergy List. Due on due Goal Update Social History. Due o n due Goal Unhealthy drug use screening . Due on due Goal Medication Reconciliation. D ue on due Goal Height. Due on d ue Goal PHQ-9. Due on du e Goal FIT-DNA. Due on due Goal Weight. Due on d ue Goal Hepatitis C screening. Due o n due Goal Tobacco Use. Due on due Goal Zoster vaccine (1st). Due on due Goal CT-Colonography. Due on due Goal Lipid panel. Due on 025 due Goal HPV. Due on due Goal Zoster vaccine (1st). Due on due Goal PHQ-9. Due on du e Goal Lipid panel. Due on due Goal Unhealthy drug use [...] Date Complaint History Of Prese nt Illness Comments: Jaiden araujo is a 54 y/o female who presents virtually via [place] for a follow up regarding chronic right sided abdominal pain. Pain has been stable overall since SELVIN. She is s/p R TAP block with Dr. Thakkar on 04/18/24 with 50% benefit. States that it has dulled the pain, but she feels that the pain is coming deeper from her intestines. Has been referred to GI at [place] and is in the process of getting her consultation. She was previously told that her pain is not r/t to her intestinal malrotation, though she feels that it is.No other concerns today. Abdominal pain Severity is 5. D uration [...] to do PT at a clinic in [place], which she plans to schedule soon.Pain continues to be variable and debilitating at times. Tends to be located around her surgical scar R>L but can also be diffuse. No other concerns today. Abdominal pain Severity is 8. D uration is chronic. The problem is unchanged. Abdominal pain Severity is 6. D uration is chronic. Location is LLQ, RLQ. The client describes it as aching, burning and sharp. Comments: Jaiden araujo is a 53 y/o female here for initial consult regarding chronic R sided abdominal pain, referred by [facility]. She has a history of uterine cancer [...] has had tests and scans done with [facility] including CT scans, endoscopies which have been unrevealing and they felt there was some contribution of her pain from her abdominal wall. Also followed with a surgeon who did not recommend surgery. The patient is currently managed on cyclobenzaprine and tylenol. No other concerns today. Functional Status Date Functional Assessmen t No [...] has had tests and scans done with [facility] including CT scans, endoscopies which have been unrevealing and they felt there was some contribution of her pain from her abdominal wall. Also followed with a surgeon who did not recommend repeat surgery. assessment Other termite helper (current) drug t herapy impression The patient is curre ntly managed on cyclobenzaprine and tylenol. Mental Status Date Cognitive Assessment Orientation - [place] ed to time, place, person, situation. Patient Care Teams Name Effective Dates (start - stop) Status Members No Information
--- OUTSIDE RECORDS SUMMARY | 2024-12-23 16:27 | XMS_ITS ---
Author Name Interface, [id number] lity Address [address] [facility] [address] [address] [facility] Address [address] [facility] [address] [address] Allergies and Adverse Reactions Medication/Group Name Reaction Severity Date Penicillins 12/02/2022 avocado 12/02/2022 Plan Date Type Value 01/12/2024 APPOINTMENT OV 30 MIN 01/04/2024 APPOINTMENT OUTSIDE TEST 5 M IN 12/02/2022 APPOINTMENT POST OP 30 MIN 01/26/[address] chest w/ IV c ontrast 03/03/2023 LABORDER U/S 12/31/[address] chest/abdomen /pelvis w/ contrast Reason for Visit OV 30 MIN Encounters Date Name 12/02/2022 Hot flushes 12/02/2022 Invasive cervical ca ncer Diagnostic Results Date Type Test Units Lower Limit Upper Limit Result Flag Comments Status Ordered By Specimen Source Lab [place]10 [facility] [place] See d Medications Date Name Route Dose Frequency Instructions Start Date End Date Status Fill Status Indication 11/04 Ibuprof en Oral active 11/04 Acetami nophen Oral active 01/01 docusat e sodium 50 MG / sennosi gianluca, RETIREMENT 8.6 MG Oral Tablet [SENOKO T-S] orally 1.0 tablet or capsule 2 times per day 2022 active Invasive cervical cancer 12/24 24 HR venlafa xine 75 MG Extende d Release Oral Capsule orally 1.0 capsule ,extend ed release 24hr daily 2022 active Hot flushes 11/28 24 HR venlafa xine 37.5 MG Extende d Release Oral Capsule [Effexo r] orally 1.0 capsule ,extend ed release 24hr daily 2022 active Invasive cervical cancer 10/27 ondanse levi 4 MG Oral Tablet orally 1.0 tablet every 8 hours 2022 active Invasive cervical cancer 10/25 oxycodo ne hydroch loride 5 MG Oral Tablet orally 1.0 tablet every 4 hours 2022 active Post op pain 09/24 lorazep am 0.5 MG Oral Tablet orally 1.0 tablet every 4 hours 2022 active Anxiety Problems Diagnosis Status Date of Diagnosis Resolution Date Post op pain Active Invasive cervical cancer Active 09/11/2022 BMI 25-29 - overweight Active 09/24/2022 Anxiety Active 09/24/2022 Hot flushes Active Vital Signs Date Type Value 12/02/2022 Body Temperature 97.90 12/02/2022 Heart Beat 63.00 12/02/2022 Respiratory Rate 16.00 12/02/2022 Oxygen Saturation 96.00 12/02/2022 BSA 2.08 12/02/2022 Pain Scale 3.00 12/02/2022 Weight 195.00 12/02/2022 Height 70.50 12/02/2022 BMI 27.58 12/02/2022 Intravascular Systolic 138 12/02/2022 Intravascular Diastolic 85 Notes Section * 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 No residual disease on hysterectomy specimen. Oncology Treatment Summary: 06/25/2022: Presented for well woman examination with Bettie Nunes CNP, in [place], [place] . Desired to get caught up as had several year lapse in healthcare due to lack of insurance.?? 07/01/2022: Mirena IUD insertion + pap smear screening. HSIL and HPV18+ co-testing. 07/28/2022: HSIL pap smear and HPV18+ co-testing. 08/22/2022: Consultation with Dr. Flaquita Suarez in [place], [place] given pap findings. 09/11/2022: s/p EUA, colposcopy, CKC, ECC, endometrial biopsy with Dr. Flaquita Suarez.?? CKC specimen = HPV-associated grade 2 invasive adenocarcinoma of cervix >8 mm in maximum tumor size, >8 mm in maximum horizontal spread, 4.5 mm DOI on sampling, - LVSI, positive margins at endocervix (12-3:00, 3-6:00, 9-12:00) & deep (i12- 3:00). Endometrial biopsy = detached fragments of endocervical adenocarcinoma. ECC = minute fragments of endocervical adenocarcinoma. 09/24/2022: Gynecologic oncology consultation with Dr. Vences. Discussed completion of preoperative imaging/staging work-up and surgical intervention with radical hysterectomy.?? 10/20/2022: s/p exploratory laparotomy, radical abdominal hysterectomy, bilateral salpingo-oophorectomy, bilateral pelvic and para-aortic lymph node dissections.??FIGO Stage IB1, grade 2 adenocarcinoma of cervix and AJCC Stage IA1, grade 2 adenocarcinoma of cervix. No parametrial involvement, negative LVSI and negative lymph nodes.?? 10/20 - 10/23/2022: She had an uneventful postoperative course, passed void trial on POD#3 and was discharged to home on POD#3 with 28 days of Eliquis 2.5 mg BID for DVT prophylaxis. 11/04/2022:??2 week postoperative visit. 11/28/2022: Initiated Venlafaxine 37.5 mg XR daily for vasomotor symptoms. 12/02/2022: 6 week postoperative visit. Vaginal cuff well-healed. Infraumbilical vertical midline incision well-healed. Genetic Testing (Nuclear Process Engineer Oncology): N/A Interval History (Nuclear Process Engineer Oncology) Mary Jane is here today for 2nd postoperative visit with her daughter and 2 granddaughters. She reportsthat she started on Venlafaxine on 11/28/2022 for vasomotor symptoms. Has not noticed relief, yet, but aware can take up to 4 weeks to notice if any benefit. She has had improvement in appetite. Feels u rination is actually better than before surgery. Feels like urinary stream is better. Denies any issues with bowel movements. Denies any vaginal bleeding. Continues to feel some fatigue. Hot flushes continue to be problematic for her. She is also noting hair loss and hair thinning. However, overall, feels much better compared to her 2 week postoperative visit. Feels like recovery was prolonged secondary to immediate postoperative GI illness. Denies any concerns today. Review of Systems: A complete 14-point review of systems is negative except as noted??in the above history of present illness. Past Medical History: 1. Migraine headaches with aura 2. Hx of molar Surgical History: 1. Suction D&C for molar (06/10/2019) 2. 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 x 3. Hx of SAB x 1.?? Hx of molar with suction D&C on 06/10/2019. Menarche age 15. Menopausal vs. postmenopausal. Difficult to tell with bleeding profile post- molar evacuation + recent cervical Ca diagnosis.?? Hx of LEEP & colposcopy ~20 years ago. Currently sexually active. Allergies: * Penicillins * avocado Medications: * Ibuprofen Oral * Effexor XR (Venlafaxine Oral 24 hr Cap) 37.5 mg capsule,extended release 24hr 1 capsule,extended release 24hr orally daily. * Lorazepam Oral 0.5 mg tablet 1 tablet orally every 4 hours as needed for anxiety. * Oxycodone Oral 5 mg tablet 1 tablet orally every 4 hours as needed for pain. post op pain * Tylenol (Acetaminophen Oral) * Ondansetron Oral 4 mg tablet 1 tablet orally every 8 hours as needed for nausea and vomiting. Family History: Father - prostate Ca, brain Ca, bone Ca Social History: Smoking Status Smoking Tobacco : Former smoker; Smokeless Tobacco : Never used smokeless tobacco; Vaping : Current vape user?? Former smoker. Reports rare alcohol use. . Daughter + 2 grandchildren live with her & her . Works as [employer] in [place]. High school education. Health Maintenance: Never had a mammogram until 2022. Has never had a colonoscopy. Pap smear results in HPI Vital Signs: Blood pressure: 138/85, Sitting, R arm, Pulse: 63, Temperature: 97.9 F, Respirations: 16, O2 sat: 96%, At Rest, Room Air, Pain Scale: 3, Height: 70.5 in, Weight: 195 lb, BSA: 2.08, BMI: 27.58 kg/m2 Physical Exam (Nuclear Process Engineer Oncology): General: alert, cooperative, no acute distress HEENT: normocephalic, trachea midline, no thyromegaly Lungs: CTAB, good inspiratory effort, no accessory muscle use, no wheezes Cardiac: RRR, no murmurs heard Abdomen: soft, non-distended, non-tender. Well-healed infraumbilical vertical midline incision.?? Extremities: non-tender, no edema Neurologic Exam: no focal deficits Pelvic: external female genitalia within normal limits without masses or lesions. On speculum examination, the vaginal cuff is well-approximated with no sutures present. The vaginal mucosa is moderately estrogenized and without masses or lesions. Mildly foreshortened due to surgical changes, ~3 cm vaginal length remaining. On bimanual examination, the vaginal cuff is palpably intact. The vaginal mucosa is smooth. The uterus, cervix and adnexa are surgically absent. There is no adnexal fullness. Laboratory Data: N/A ? Imaging: CT Chest/Abdomen/Pelvis on 09/26/2022 (preoperative imaging) COMPARISON: None. FINDINGS: Chest. Thyroid Multiple hypoattenuated right thyroid nodules measuring up to 7 mm. Lungs: 4 mm right middle lobe pulmonary nodule (series 3, image 55). 4 mm calcified granuloma in the lingula. Mild bibasilar dependent atelectatic changes. No focal airspace opacities or pleural effusions. Heart/Pericardium: Unremarkable. Lymph Nodes. No significant axillary, mediastinal, or hilar lymphadenopathy. Abdomen/Pelvis: Liver: Noncirrhotic morphology. Mild intrahepatic bile duct distention may represent reservoir effect in post cholecystectomy state. Gallbladder: Absent. Spleen: Unremarkable. Adrenal glands: Mild left adrenal gland thickening without discrete nodule. Kidneys: Enhance symmetrically without hydronephrosis. 1.4 cm left upper pole cyst. Pancreas. Unremarkable. Lymph nodes: No retroperitoneal, mesenteric, inguinal, or pelvic adenopathy by CT criteria. Vascular: Abdominal aorta normal in caliber. Bowel: Evaluation is limited without enteric contrast. Grossly unremarkable. Urinary bladder: Limited evaluation due to underdistention. No gross pathology. Reproductive structures: Intrauterine device is present. No abdominal/pelvis ascites or free intraperitoneal air. Musculoskeletal: Visualized osseous structures demonstrate degenerative changes in the spine. No focal lytic or blastic lesions. IMPRESSION: 1. 4 mm right middle lobe pulmonary nodule which is technically indeterminate. Recommend follow-up evaluation with chest CT in 3-6 months to assure stability. 2. Otherwise no evidence of metastatic disease in the chest, abdomen, and pelvis. Problems: * Invasive cervical cancer ( Stage Date: 10/20/2022, Stage FIGO IB1 (T1b1, N0, M0)-Pathological Date of Dx:09/11/2022 Extent of Disease: Active surveillance; Disease State: Complete response to treatment; Histopathologic Type: Adenocarcinoma, endocervical; Histologic Grade: G2; Lymph-Vascular Invasion: Not present; Residual Tumor: R0; ) * Anxiety ( Date of Dx:09/24/2022 ) * BMI 25-29 - overweight ( Date of Dx:09/24/2022 ) * Hot flushes * Post op pain Assessment & Plan (Nuclear Process Engineer Oncology): Roger is a gera 52 yo perimenopausal female here today for 2 week postoperative visitwith FIGO Stage IB1, grade 2, adenocarcinoma of cervix. No residual disease on hysterectomy specimen. No adjuvant therapy recommended.?? 1. 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 Cancer surveillance planning/recommendations //Aware will need CT chest follow-up in March 2023 (as recommended given 4 mm right middle lobe) //Will need q6 month visits x 2 years with thorough review of systems, physical examination (including pelvic and rectovaginal examination) x 2 years, followed by annual visits in years 2-5 //Will need yearly vaginal cuff pap smears x 25 years after cervical cancer diagnosis, next after June 2023 //Would prefer to have surveillance visits with her regular care team, which is appropriate //Will remain available, if anything is needed 3. Vasomotor symptoms //Aware could be related to postoperative period/stress response //Also, could be due to surgical menopause and/or multifactorial //Continue Venlafaxine 37.5 mg XR daily (initiated 11/28/2022) and wait at least 4 weeks to determineif benefit //If still struggling with vasomotor symptoms & quality of life is impacted, can add transdermal estrogen (HRT) //Aware would start at lowest dose and titrate Pain Care Management: Pain Scale: 3 Patient Care needs: Depressions Status: Was screened; Outcome positive: Yes; Screening Date: 11/04/2022; Screening Tool: Patient Health Questionnaire (PHQ9); Total depression score: 13 Psycho-Social PHQ-9 Follow-up Plan (if applicable): Smoking Status: Smoking Tobacco : Former smoker; Smokeless Tobacco : Never used smokeless tobacco; Vaping : Current vape user Ruby Vences MD Copy to:??Shyam Garcia [employer], BEFORE SCHOOL FAX Flaquita Suarez MD (Referring) Electronically signed by Ruby Vences MD 12/02/2022 16:11 CDT
--- OUTSIDE RECORDS SUMMARY | 2024-12-23 16:27 | XMS_ITS | CCD ---
Author Name Interface, [id number] lity Address [address] [facility] [address] [place] [address] Organization [facility] Address [address] [facility] [address] [place] [address] Care Team Providers Care Health Associate Name Role Phone [place], Ruby Unavailable Unavailable Allergies and Adverse Reactions Medication/Group Name Reaction Severity Date Penicillins 12/02/2022 avocado 12/02/2022 Care Plan Date Type Value 01/12/2024 APPOINTMENT OV 30 MIN 01/04/2024 APPOINTMENT OUTSIDE TEST 5 M IN 12/31/2023 [facility] CT chest/abdomen /pelvis w/ contrast Reason for Visit OV 30 MIN Encounters Date Name 01/04/2024 OUTSIDE TEST 5 MIN Diagnostic Results Date Type Test Units Lower Limit Upper Limit Result Flag Comments Status Ordered By Specimen Source Lab Address 01/10 [facility] other lab See attache rodriguez Medications Date Name Route Dose Frequency Instructions Start Date End Date Status Fill Status Indication 11/04 Acetami nophen Oral active 11/04 Apixaba n Oral BID inactive 09/24 Multivi tamins Oral Tablet daily inactive 11/04 Ibuprof en Oral active 09/24 Ferrous Glucona te Oral orally 236.0 daily inactive 09/24 Baclofe n Oral orally 10.0 mg daily inactive Problems Diagnosis Status Date of Diagnosis Resolution Date Post op pain Active Invasive cervical cancer Active 09/11/2022 BMI 25-29 - overweight Active 09/24/2022 Morbid obesity Inactive Anxiety Active 09/24/2022 Hot flushes Active Procedures Date Category Name Instructions Status 12/31/2023 Physician 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
--- OUTSIDE RECORDS SUMMARY | 2024-12-23 16:27 | XMS_ITS | Clinical Summary ---
Author Organization [facility] Address [address] [place] [address] Care Team Providers Care Site Inspector Name Role Phone Fei Mandel Kaycealisa [facility] Unavailable Sheri Garcia NP Primary Care Provider [phone] Allergies Active Allergy Reactions Criticality Noted Date Comments Avocado *Unknown - Follow up needed 10/17/19 23 Penicillins Rash 09/10/2018 Medications acetaminophen SR (TYLENOL ARTHRITIS) 650 mg extended release tablet Take 1 tablet by mouth every 8 hours if needed. Max acetaminophen dose: 4000mg in 24 hrs. 60 tablet 2 0 Active baclofen (LIORESAL) 10 mg tabletIndicati ons:Acute pain of right shoulder Take 1 Tablet (10 mg) by mouth 3 times daily if needed (muscle pain). 15 Tablet 3 Active LORazepam (ATIVAN) 0.5 mg tab Take 1 mg by mouth each time if needed. Active SUMAtriptan (IMITREX) 50 mg tablet Take 50 mg by mouth 2 times daily if needed for Migraine. Give at minimum 2hrs apart. Max Dose: 200mg per 24hrs. Active ferrous gluconate 236 mg (27 mg iron) tab Take 236 mg by mouth once daily. Active oxyCODONE (ROXICODONE) 5 mg immediate release tabletIndicati ons:Post-op pain Take 1 Tablet (5 mg) by mouth every 4 hours if needed for Pain. 12 Tablet 10/21/2022 4:48 PM CDT 3 Active sennosides-doc usate (SENOKOT S) (8.6-50 mg) tabletIndicati ons:Post-op pain Take 1-2 Tablets by mouth 2 times daily if needed for Constipation. 30 Tablet 10/21/2022 4:48 PM CDT 3 Active venlafaxine (EFFEXOR XR) 75 mg cp24 Extended-Relea se capsule Take by mouth. 3 Active Active Problems Problem Noted Date Diagnosed Date Morbid obesity 10/20/2022 Anxiety 10/20/2022 Malignant neoplasm of endocervix 10/20/2022 Unspecified internal derangement of knee 010 Resolved Problems Problem Noted Date Diagnosed Date Resolved Date Malignant neoplasm of exocervix 10/19/2022 10/20/2022 Family History Medical History Relation Name Comments Cancer-prostate Father Heart Disease Father Hypertension Father Melanoma Father mets to prostat e, bone Diabetes Mother Anesthesia Malignant Hyperthermia No Family History Blood Disease No Family History Relation Name Status Comments Father Mother Social History Tobacco Use Types Packs/Day Years Used Date Smoking Tobacco: Former Cigarettes Smokeless Tobacco: Never Tobacco Cessation:Counseling Given: Not Answered Alcohol Use Standard Drinks/Week Comments Never 0 (1 standard drink = 0.6 oz pur e alcohol) PHQ-2 Answer Date Recorded PHQ-2 TOTAL SCORE 0 06/07/2019 Social Connections Answer Date Recorded Frequency of Communication with Friends and Fami ly Not on file 03/17/2021 Financial Resource Strain Answer Date R ecorded Difficulty of Paying Living Expenses Not on file 03/17/2021 Difficulty of Paying Living Expenses Not on file 03/17/2021 Comments No Sex and Gender Information Value Date Recorded Sex Assigned at Not on file Legal Sex Female 8:27 AM CDT Gender Identity Not on file Sexual Orientation Not on file Obstetrics History Para Term AB IAB SAB Ectopic Multiple Livin g Live Births 1 0 0 0 0 0 0 0 Date Outcome GA Total Labor Labor/2nd/3rd Weight Sex Type Anes PTL Lashae A1 A5 Name Clin Last Filed Vital Signs Vital Sign Reading Time Taken Comments Blood Pressure 144/82 01/06/2024 2:36 PM CDT Pulse 62 01/06/2024 2:36 PM CDT Temperature 37 C (98.6 F) 10/23/2022 7:00 AM CDT Respiratory Rate 16 05/13/2023 2:38 PM ACCIDENT REPORT CLERK Oxygen Saturation 99% 01/06/2024 2:36 PM CDT Inhaled Oxygen Concentration - - Weight 92.2 kg (203 lb 4.8 oz) 01/06/2024 2:36 P M CDT Height 177.8 cm (5' 10) 05/13/2023 2:38 PM ACCIDENT REPORT CLERK Body Mass Index 29.17 05/13/2023 2:38 PM ACCIDENT REPORT CLERK Plan of Treatment Health Maintenance Due Date Last Done Comments Tetanus booster 1982 Hepatitis B series for 19+ ( 1 of 3 - 19+ 3-dose series) 1990 Colonoscopy through age 75 2016 Lipids for age 45-75 2016 Mammogram for age 45-75 2016 Depression screening for age 12+ 06/07/2020 06/08/2019, 06/08/2019, 06/07/2019 Pneumococcal series for age 50+ (1 of 1 - PCV) 2021 Zoster (shingles) series for age 50+ (1 of 2) 2021 BMI (ht and wt on same day) for age 18+ 05/13/2024 05/13/2023, 06/07/2019, 09/10/2018 COVID-19 vaccine series ( season) 2024 06/15/2020, 05/18/2020 Influenza Vaccine (#1) 2024 Pap test for age 21-65 07/01/2025 07/01/2022, 2022 RSV vaccine for adults or pr egnancy (1 - 1-dose 75+ series) 2046 HIV for age 15-65 Completed 06/07/2019 Hepatitis C screening for age 18-79 Completed 06/06 Medical Devices Implanted Type Area Soil Conservation Aide Device Identifier Shelf Expiration Date Model / Serial / Lot Implant On The Fly - [id number] Implanted:Qty: 1 on 04/30/2010 at [facility] Right: Knee [employer] 03/22/2015 [id number] / / [id number] Description:ACL TIGHTROPE Tendon Ant Tibialis - [id number] Implanted:Qty: 1 on 04/30/2010 at [facility] Right: Knee [employer] 12/26/2014 [id number] / / [id number] Screw [id number] Delta Rnd Biocomposite Interference - [id number] Implanted:Qty: 1 on 04/30/2010 at [facility] Right: Knee [employer] 01/20/2012 [id number] # / / [id number] Screw Biocomp [place] 4.75 - [id number] Implanted:Qty: 1 on 04/30/2010 at [facility] Right: Knee [employer] 03/22/2012 [id number]# / / [id number] Explanted Type Area Soil Conservation Aide Device Identifier Shelf Expiration Date Model / Serial / Lot Pin Retro - [id number] Explanted:Qty: 1 on 04/30/2010 at [facility] Right: Knee [employer] 11/20/2014 [id number]# / / [id number] Procedures Procedure Name Priority Date/Time Associated Diagnosis Comments HPV HIGH RISK Routine 07/01/2022 12:00 PM CDT ANTI HIV 1/2 Routine 06/07/2019 1:19 PM CDT Encounter for supervision of normal first in first trimester (HC) ANTI HCV Routine 06/07/2019 1:19 PM CDT Encounter for supervision of normal first in first trimester (HC) from Last 3 Months or Most Recently Relevant to Health Maintenance Results * (ABNORMAL) HPV HIGH RISK (07/01/2022 12:00 PM CDT) TYPE 16 Negative Negative 07/04/2022 10:46 AM CDT [facility] TYPE 18 Positive(A) Negative 07/04/2022 10:46 AM CDT [facility] OTHER HIGH RISK TYPES Negative Negative 07/04/2022 10:46 AM CDT [facility] Other (Cervical) 07/01/2022 12:00 PM CDT 07/02/2022 6:23 PM [facility]T [facility] 07/04/2022 10:46 AM CDT Specimen is positive for HPV type 18 DNA. HPV types 16, 31, 33, 35, 39, 45, 51, 52, 56, 58, 59, 66 and 68 DNA were undetectable or below the pre-set threshold. Methodology: [place] 4800 HPV Test Bettie Nunes DOOR PERSON MICROBIOLOGY Final Res ult [facility] [address] [place] [address], [place] * ANTI HCV (06/07/2019 1:19 PM CDT) HEPATITIS C ANTIBODY Non-React jerad Non-React jerad 06/07/2019 10:06 PM CDT [facility] Comment:Antibodies to HCV no t detected; does not exclude the possibility of exposure to HCV. Blood BLOOD SPECIMEN / Unknown Venipuncture / Unknown 06/07/2019 1:19 PM CDT 06/07/2019 1:19 PM CDT Tiffany IQBAL SEND OUTS Final R esult Performing Organization Address City/[facility]/ZIP Co de Phone Number [facility] [address] [place] [address], [place] * ANTI HIV 1/2 (06/07/2019 1:19 PM CDT) HIV-1/HIV-2 ANTIBODY Non-Reacti ve Non-Reacti ve 06/07/2019 10:14 PM CDT [facility] Comment:HIV-1 p24 and HIV-1/ HIV-2 Ab not detected. Blood BLOOD SPECIMEN / Unknown Venipuncture / Unknown 06/07/2019 1:19 PM CDT 06/07/2019 1:19 PM CDT Tiffany IQBAL SEND OUTS Final R esult [facility] [address] [place] [address], from Last 3 Months or Most Recently Relevant to Health Maintenance Insurance JOSHUA MCCLAIN [id number] [facility] JOSHUA MCCLAIN [id number] [place] CARE Advance Directives * Full Code (Latest Code Status on File) Date Activated Date Inactivated Comments 10/22/2022 2:28 PM 10/23/2022 3:54 PM FULL CODE STAT US Question Answer Comments Code Status Discussion: Reviewed Preferences * Full Code Date Activated Date Inactivated Comments 10/20/2022 6:07 AM 10/20/2022 3:39 PM Question Answer Comments Code Status Discussion: Unable to Assess Preferences, Provider to review later * Full Code Date Activated Date Inactivated Comments 04/30/2010 9:14 AM 04/30/2010 3:38 PM * Full Code Date Activated Date Inactivated Comments 04/30/2010 3:04 AM 04/30/2010 6:52 AM Care Teams Site Inspector Relationship Specialty Start Date End Date Sheri Garcia NP [address] [place] [address] PCP - General Emergency Medicine 09/30/22 Fei Mandel, [facility] [address] [place] [address] Family Practice 09/08/18
[2024-12-23 16:37] VITALS: BP 146/80; PULSE 112; RESP 26; TEMP 37.2; O2SAT 99; BMI 26.1
--- NOTE | 2024-12-23 17:00 | CRLHL7_ITS ---
For Patients: As a result of the Century Cures Act, medical imaging exams and procedure reports are released immediately into your electronic medical record. You may view this report before your referring provider. If you have questions, please contact your health care provider. INDICATION: right sided pain TECHNIQUE: CT of the abdomen and pelvis was obtained with 90 mL of Isovue 370 intravenous contrast. Please note that all CT scans at this facility use dose modulation, iterative reconstruction, and/or weight-based dosing when appropriate to reduce radiation dose to as low as reasonably achievable. COMPARISON: 01/28/2024. FINDINGS: Lower thorax: Normal. Liver and biliary tree: Focal fat seen adjacent to the falciform ligament. Gallbladder: Status post cholecystectomy. Spleen: Normal. Pancreas: Normal. Adrenal glands: Normal. Kidneys and ureters: No hydronephrosis or obstructing renal calculi. Left renal cyst. Gastrointestinal tract: Mild sigmoid colonic diverticulosis without CT evidence of acute diverticulitis. The ascending colon is again located in the left abdomen, which is compatible with congenital malrotation. No evidence of acute appendicitis. No evidence of bowel obstruction. Peritoneal cavity: Normal. Bladder: Normal. Pelvic organs: Status post hysterectomy. Vasculature: Minimal calcification. Lymph nodes: Normal. Abdominal wall: Postsurgical changes are seen in the lower anterior midline abdominal wall. Musculoskeletal: Mild degenerative changes of the visualized spine and bilateral hips. IMPRESSION: 1. No acute intra-abdominal abnormality is seen. 2. 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 Please note that all CT scans at this facility use dose modulation, iterative reconstruction, and/or weight-based dosing when appropriate to reduce radiation dose to as low as reasonably achievable. Dictated by Rajinder Benitez MD @ 12/23/2024 6:23:51 PM (Electronically Signed)
[2024-12-23 17:19] LABS: Lactate* 1.7 mmol/L (0.5-1.9)
[2024-12-23 17:24] LABS: Appearance Urine Clear (Clear)
[2024-12-23 17:25] LABS: Hematocrit* 41.5 % (33.0-51.0); Hemoglobin* 14.1 gm/dL (12.0-16.0); Immature Granulocytes Abs Auto 0.01 K/uL (0.00-0.30); Immature Granulocytes Pct Auto 0.1 %; Mean Corpuscular HGB Conc 34 gm/dL (32-36); Mean Corpuscular Hemoglobin 29 pg (26-34); Mean Corpuscular Volume 86 fL (80-100); RDW Coefficient of Variation % 13.2 % (11.5-15.5); Red Blood Count* 4.81 m/uL (4.00-5.20); White Blood Count* 6.97 K/uL (4.50-11.00)
[2024-12-23 17:26] LABS: Lymphocytes Absolute Auto 3.40 K/uL (0.90-2.90); Slide Review Reflex No
[2024-12-23 17:34] LABS: Albumin* 4.7 g/dL (3.3-5.0); Chloride* 103 mmol/L (96-114); Sodium* 137 mmol/L (135-149)
[2024-12-23 17:35] LABS: Potassium* 3.7 mmol/L (3.6-5.1)
--- NOTE | 2024-12-23 17:36 | ED_ITS ---
HPI - General Adult General Chief complaint: Abdominal Pain Stated complaint: abd pain, body tingling Time Seen by Provider: 12/23/24 16:50 Source: patient Mode of arrival: ambulatory Limitations: no limitations History of Present Illness HPI narrative: Patient is a 54-year-old female coming in today complaining of abdominal pain that has been constant and sharp for the last 4 days. She states that there are 3 points over the right abdomen that hurt. One is in the right upper quadrant 1 is periumbilical and 1 is in the right lower quadrant. She states that she has had pain like this many times in the past and is due to ?malrotation of her intestines?. She states that 1 time she was in [place] and she had injections directly into the abdomen that was helpful. She is not sure what was injected into the abdomen. She states she has been feeling nauseated, no vomiting, no fevers. Normal bowel movements. No urinary symptoms including increased frequency or urgency. No blood in her stools or urine. No dark tarry stools. She denies any unintentional weight loss. Nothing seems to make the pain better or worse. Past surgical history according to the patient includes cholecystectomy, hysterectomy secondary to cancer, abdominal wall hernia with mesh repair. Patient also states that she has been to General Surgeons, GI physicians, physical therapists and no one can diagnose what is causing her pain. Related Data Home Medications ?Medication ?Instructions ?Recorded ?Confirmed ferrous gluconate 236 mg (27 mg 236 mg PO QDAY 3 10/10/24 iron) tablet multivitamin 1 tab PO QAM 06/25/22 Previous Rx's ?Medication ?Instructions ?Recorded cyclobenzaprine 10 mg tablet 10 mg PO TID #30 tabs 01/14 lorazepam 0.5 mg tablet 0.5 mg PO QDAY PRN anxiety 3 0 days 05/30/24 #10 tabs omeprazole 20 mg capsule,delayed 20 mg PO DAILY #90 ca ps 05/30/24 release ondansetron HCl 4 mg tablet 4 mg PO Q8H PRN nausea and 05/30/24 vomiting #20 tabs sennosides 8.6 mg-docusate sodium 1 tab-cap PO QDAY DC N constipation 05/30/24 50 mg tablet (Stimulant Laxative #90 tabs Plus) sumatriptan succinate 100 mg See Rx Instructions PO .C OMPLEX 05/30/24 tablet (Imitrex) #10 tabs venlafaxine 150 mg 150 mg PO DAILY #90 caps 01/14 capsule,extended release 24 hr Allergies Allergy/AdvReac Type Severity Reaction Status Date / Time avocado Allergy Unknown severe gi Verified 10/10/24 12:41 illness Penicillins Allergy Unknown Unknown Verified 10/10/24 12:41 Review of Systems Status of ROS: Reports: 10 or more systems reviewed and unremarkable except as noted in History and below PFSH [facility] Medical History Abdominal wall hernia ?K43.9 - Ventral hernia without obstruction or gangrene (ICD-10) History of postoperative nausea and vomiting ?Z87.898 - Personal history of other specified conditions (ICD-10) History of abnormal cervical Pap smear ?Z87.42 - Personal history of other diseases of the female genital tract (ICD-10) Molar ?O02.0 - Blighted ovum and nonhydatidiform mole (ICD-10) Surgical History H/O hernia repair ?Z98.890 - Other specified postprocedural states (ICD-10) ?Z87.19 - Personal history of other diseases of the digestive system (ICD-10) H/O hysterectomy with oophorectomy H/O dilation and curettage ?Z98.890 - Other specified postprocedural states (ICD-10) History of foot surgery ?Z98.890 - Other specified postprocedural states (ICD-10) History of right knee surgery ?Z98.890 - Other specified postprocedural states (ICD-10) History of cholecystectomy ?Z90.49 - Acquired absence of other specified parts of digestive tract (ICD- 10) Family History Father Heart disease Skin cancer Prostate cancer Bone cancer Brain cancer Mother Stroke Diabetes Social History Narrative: Vapes, no alcohol use. 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 Highest level of school completed/degree received: high school graduate Smoking Status: Former smoker Do you use any of these nicotine containing products: None How often do you have a drink containing alcohol: never How often do you have six or more drinks on one occasion: Never AUDIT-C Alcohol total score: 0 Non-prescribed substance use: denies use Caffeine: No How often does anyone, including family, friends and others, physically hurt you : never How often does anyone, including family, friends and others, insult or talk down to you: never How often does anyone, including family, friends and others, threaten you with harm: never How often does anyone, including family, friends and others, scream or curse at you: never service: No Exam Narrative: Exam Narrative: Well-nourished well-developed patient writhing in pain. Alert and oriented. Answers questions appropriately. Patient speaks in full sentences without needing to catch her breath. HEENT: Normocephalic atraumatic. Pupils are equally round reactive to light. Extraocular muscles are intact. Conjunctivae are moist without any icterus noted. Moist mucous membranes. Cardiovascular: Heart is regular rate and rhythm S1 and S2 are present without any murmurs. Lungs: Clear to auscultation bilaterally no wheezes rhonchi or rales are appreciated. Patient takes deep breaths without any discomfort. Abdomen: Soft and nondistended with normal bowel sounds. She has tenderness up and down the entire right side of the abdomen Extremities: Bilateral lower extremities are without edema. Skin: Well perfused without any obvious rashes. Const: Vital Signs, click to edit/add: Vital Signs - 24 hr 12/23/24 16:37 12/23/24 17:40 Temperature 99 F Pulse Rate 83 Pulse Rate [Pulse Oximeter] 112 H Respiratory Rate 26 H 16 Blood Pressure 123/81 Blood Pressure [Ri ght Upper Arm] 146/80 H Pulse Oximetry 99 98 Oxygen Delivery Me thod Room Air Room Air Course Course ED Course: IV morphine was given which did help. Lab work unremarkable. Abdominal CT shows congenital malrotation of the bowels, no acute findings. Vital Signs Vital signs: Initial Vital Signs Temperature 99 F 12/23/24 16:37 Temperature Source Temporal Artery Scan 12/23/24 16:37 Pulse Rate 112 H 12/23/24 16:37 Respiratory Rate 26 H 12/23/24 16:37 Blood Pressure 146/80 H 12/23/24 16:37 Blood Pressure Mean 102 12/23/24 16:37 Pulse Oximetry 99 12/23/24 16:37 Oxygen Delivery Method Room Air 12/23/24 16:37 Vital Signs Temperature 99 F 12/23/24 16:37 Pulse Rate 112 H 12/23/24 16:37 Respiratory Rate 26 H 12/23/24 16:37 Blood Pressure 146/80 H 12/23/24 16:37 Pulse Oximetry 99 12/23/24 16:37 Oxygen Delivery Method Room Air 12/23/24 16:37 Temperature 99 F 12/23/24 16:37 Pulse Rate 83 12/23/24 17:40 Respiratory Rate 16 12/23/24 17:40 Blood Pressure 123/81 12/23/24 17:40 Pulse Oximetry 98 12/23/24 17:40 Oxygen Delivery Method Room Air 12/23/24 17:40 Medications Administered Medications: Discontinued Medications Generic Name Dose Route Start Last Admin Trade Name Freq PRN Reason Stop Dose Admin Morphine Sulfate 2 mg 12/23/24 17:00 12/23/24 17:35 Morphine 2 Mg/Ml Inj IVP 12/23/24 17:01 2 mg ONCE ONE Administration Medical Decision Making MDM Narrative Medical decision making narrative: 54-year-old female with chronic abdominal pain, no acute findings today. Patient is very upset and frustrated. Did my best to reassure her and encouraged that she continue outpatient management. Lab Data Lab results reviewed: Yes I reviewed the patient's lab results Labs: Lab Results 12/23/24 12/23/24 Range/Units 17:13 17:15 WBC 6.97 (4.50-11.00) K/uL RBC 4.81 (4.00-5.20) m/uL Hgb 14.1 (12.0-16.0) gm/dL Hct 41.5 (33.0-51.0) % MCV 86 (80-100) fL MCH 29 (26-34) pg MCHC 34 (32-36) gm/dL RDW Coeff of Allyssa 13.2 (11.5-15.5) % Plt Count 354 (140-440) K/uL Neut % (Auto) 39.3 L (42.0-72.0) % Lymph % (Auto) 48.5 H (20-44) % Island % (Auto) 9.2 (0.0-11.0) % Eos % (Auto) 2.6 (0.0-7.0) % Baso % (Auto) 0.3 (0.0-3.0) % Neut # (Auto) 2.70 (1.7-7.0) K/uL Lymph # (Auto) 3.40 H (0.90-2.90) K/uL [place] # (Auto) 0.60 (0.00-0.90) K/UL Eos # (Auto) 0.18 (0.00-0.50) K/uL Baso # (Auto) 0.02 (0.00-0.30) K/uL Abs Immat Gran (auto) 0.01 (0.00-0.30) K/uL Imm/Tot Granulo (auto) 0.1 % Sodium 137 (135-149) mmol/L Potassium 3.7 (3.6-5.1) mmol/L Chloride 103 (96-114) mmol/L Carbon Dioxide 25 (20-32) mmol/L Anion Gap 9 (7-15) mEq/L BUN 9 (7-30) mg/dL Creatinine 0.8 (0.5-1.5) mg/dL Estimated Creat Clear 87.94 Estimated GFR 88 ml/min Glucose 100 (60-115) mg/dL Lactate 1.7 (0.5-1.9) mmol/L Calcium 9.9 (8.4-10.6) mg/dL Total Bilirubin 0.4 (0.1-1.5) mg/dL Direct Bilirubin 0.2 (0.0-0.5) mg/dL AST 30 (12-35) U/L ALT 18 (4-35) U/L Alkaline Phosphatase 72 (40-150) U/L C-Reactive Protein < 0.5 L (0.5-1.0) mg/dL Total Protein 7.9 (6.0-8.3) g/dL Albumin 4.7 (3.3-5.0) g/dL Lipase 92 (23-300) U/L Procalcitonin 0.04 (<0.50) ng/mL Urine Color Yellow (Yellow) Urine Appearance Clear (Clear) Urine pH 8.5 (5.0-8.5) Ur Specific [place] 1.015 (1.000-1.030) Urine Protein Negative (Negative) Urine Glucose (UA) Negative (Negative) Urine Ketones Negative (Negative) Urine Blood Negative (Negative) Urine Nitrite Negative (Negative) Urine Bilirubin Negative (Negative) Urine Urobilinogen 0.2 (0.2-1.0) Ur Leukocyte Esterase Negative (Negative) Urine RBC 0-2 (0-2) Urine WBC 0-2 (0-5) Ur Squamous Epith Cells None (None-Few) Urine Bacteria None (None) Imaging Data CT scan - abdomen: Attestation: I have reviewed the pertinent imaging results. Radiologist's impression: TECHNIQUE: CT of the abdomen and pelvis was obtained with 90 mL of Isovue 370 intravenous contrast. Please note that all CT scans at this facility use dose modulation, iterative reconstruction, and/or weight-based dosing when appropriate to reduce radiation dose to as low as reasonably achievable. COMPARISON: 01/28/2024. FINDINGS: Lower thorax: Normal. Liver and biliary tree: Focal fat seen adjacent to the falciform ligament. Gallbladder: Status post cholecystectomy. Spleen: Normal. Pancreas: Normal. Adrenal glands: Normal. Kidneys and ureters: No hydronephrosis or obstructing renal calculi. Left renal cyst. Gastrointestinal tract: Mild sigmoid colonic diverticulosis without CT evidence of acute diverticulitis. The ascending colon is again located in the left abdomen, which is compatible with congenital malrotation. No evidence of acute appendicitis. No evidence of bowel obstruction. Peritoneal cavity: Normal. Bladder: Normal. Pelvic organs: Status post hysterectomy. Vasculature: Minimal calcification. Lymph nodes: Normal. Abdominal wall: Postsurgical changes are seen in the lower anterior midline abdominal wall. Musculoskeletal: Mild degenerative changes of the visualized spine and bilateral hips. IMPRESSION: 1. No acute intra-abdominal abnormality is seen. 2. 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 Discharge Plan Discharge Clinical Impression: Abdominal pain Patient Disposition: Home, Self-Care Condition: Stable Additional Instructions: Follow-up with your primary care provider as scheduled. Other things to consider include scar tissue formation, nerve damage causing chronic pain. Recommend discussing these things with your primary. Prescriptions: No Action multivitamin Tablet 1 tab PO QAM ferrous gluconate 236 mg (27 mg iron) tablet 236 mg PO QDAY cyclobenzaprine 10 mg tablet 10 mg PO TID Qty: 30 6RF lorazepam 0.5 mg tablet 0.5 mg PO QDAY PRN (Reason: anxiety) 30 Days Qty: 10 5RF omeprazole 20 mg capsule,delayed release(DR/EC) 20 mg PO DAILY Qty: 90 3RF ondansetron HCl 4 mg tablet 4 mg PO Q8H PRN (Reason: nausea and vomiting) Qty: 20 6RF sennosides-docusate sodium [Stimulant Laxative Plus] 8.6-50 mg tablet 1 tab-cap PO QDAY PRN (Reason: constipation) Qty: 90 3RF sumatriptan succinate [Imitrex] 100 mg tablet See Rx Instructions PO .COMPLEX Qty: 10 11RF Rx Instructions: take 1 tab at onset of headache; if no relief, may repeat 1 tab after at least 2 hrs; max = 2 tabs/24 hrs PO venlafaxine 150 mg capsule,extended release 24hr 150 mg PO DAILY Qty: 90 3RF Follow Up/Referrals: Sheri Garcia, RECEIVING BARN CUSTODIAN, LOUVER DOOR ASSEMBLER [Primary Care Provider, Family Practice] Stand Alone Forms: TSAT Groupth Info Instructions
[2024-12-23 17:37] LABS: Blood Urea Nitrogen* 9 mg/dL (7-30); Creatinine* 0.8 mg/dL (0.5-1.5); Est. Creatinine Clearance* 87.94; Estimated Glomerular Filt Rate 88 ml/min
[2024-12-23 17:38] LABS: Alanine Aminotransferase* 18 U/L (4-35); Alkaline Phosphatase* 72 U/L (40-150); Anion Gap 9 mEq/L (7-15); Aspartate Amino Transferase* 30 U/L (12-35); Bilirubin Direct* 0.2 mg/dL (0.0-0.5); Bilirubin Total* 0.4 mg/dL (0.1-1.5); Calcium* 9.9 mg/dL (8.4-10.6); Carbon Dioxide* 25 mmol/L (20-32); Glucose* 100 mg/dL (60-115); Total Protein* 7.9 g/dL (6.0-8.3)
[2024-12-23 17:40] VITALS: BP 123/81; PULSE 83; RESP 16; O2SAT 98
--- OUTSIDE RECORDS SUMMARY | 2024-12-23 17:49 | XMS_ITS ---
Author Name Interface, [id number] lity Address [address] [place] [id number] [facility] Address [facility] [address] [place] [address] Allergies and Adverse Reactions Plan Reason for Visit Encounters Diagnostic Results Medications Problems Vital Signs Notes Section
--- OUTSIDE RECORDS SUMMARY | 2024-12-23 17:49 | XMS_ITS | CCD ---
Author Name Interface, [id number] lity Address [address] [facility] [address] [place] [address] Organization [facility] Address [address] [place] [address] Care Team Providers Care Woodwind Instrument Repairer Name Role Phone Vangie [place], Ruby Unavailable Unavailable Allergies and Adverse Reactions Medication/Group Name Reaction Severity Date Penicillins 12/02/2022 avocado 12/02/2022 Care Plan Date Type Value 01/12/2024 APPOINTMENT OV 30 MIN 01/04/2024 APPOINTMENT OUTSIDE TEST 5 M IN 12/31/[address] [facility] [address] chest/abdomen /pelvis w/ contrast Reason for Visit OV 30 MIN Encounters Date Name 01/04/2024 OUTSIDE TEST 5 MIN Diagnostic Results Date Type Test Units Lower Limit Upper Limit Result Flag Comments Status Ordered By Specimen Source Lab Address 01/10 [facility] [place] See attache rodriguez Medications Date [...] Name Instructions Status 12/31/2023 Physician Order 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
--- OUTSIDE RECORDS SUMMARY | 2024-12-23 17:49 | XMS_ITS ---
Author Name Interface, [id number] lity Address [address] [facility] [address] [address] [facility] Address [address] [facility] [address] [address] Allergies and Adverse Reactions Medication/Group Name Reaction [...] Ordered By Specimen Source Lab Address 01/10 [facility] [place] See d Medications Date Name Route Dose Frequency Instructions Start Date End Date Status Fill Status Indication 11/04 Ibuprof en Oral active 11/04 Acetami nophen Oral active 01/01 docusat e sodium 50 MG / sennosi gianluca, SKILLED NURSING 8.6 MG Oral Tablet [SENOKO T-S] orally [...] 12/02/2022 Intravascular Diastolic 85 Notes Section * CUSTOMER ASSOCIATE Follow-Up (Amended) GYNECOLOGIC ONCOLOGY FOLLOW-UP VISIT Patient Name:??ROGER BOOKER :??1970 Date of Visit:??12/02/2022 Referring Provider:??Flaquita Suarez MD Attending:??Ruby Vences (Gynecological/Oncology) Chief Complaint (Biometric Fingerprinting Technician Oncology):* Stage IB1, grade 2 adenocarcinoma of cervix * 2nd postoperative visit History of Present Illness (Biometric Fingerprinting Technician Oncology): Roger is a gera 52 yo perimenopausal female here today for 2nd postoperative visit with FIGO Stage IB1, grade 2, adenocarcinoma of cervix. No residual disease on hysterectomy specimen. Oncology Treatment Summary: 06/25/2022: Presented for well woman examination with Bettie Nunes CNP, in [place], [place] . Desired to get caught up as had several year lapse in healthcare due to lack of insurance.?? 07/01/2022: Mirena IUD insertion + pap smear screening. HSIL and HPV18+ co-testing. 07/28/2022: HSIL pap smear and HPV18+ co-testing. 08/22/2022: Consultation with Dr. Flaquita Suarez in [place], [place] given pap findings. 09/11/2022: s/p EUA, [...] Infraumbilical vertical midline incision well-healed. 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 x 3. Hx of SAB [...] with her & her . Works as [employer] in [place]. High school education. Health Maintenance: Never had a mammogram until 2022. Has never had a colonoscopy. Pap smear results in HPI Vital Signs: Blood pressure: 138/85, Sitting, R arm, Pulse: 63, Temperature: 97.9 F, Respirations: 16, O2 sat: 96%, At Rest, Room Air, Pain Scale: 3, Height: 70.5 in, Weight: 195 lb, BSA: 2.08, BMI: 27.58 kg/m2 Physical Exam (Biometric Fingerprinting Technician Oncology): General: alert, cooperative, no acute distress [...] * Post op pain Assessment & Plan (Biometric Fingerprinting Technician Oncology): Roger is a gera 52 yo perimenopausal female here today for 2 week postoperative visitwith FIGO Stage IB1, grade 2, adenocarcinoma of cervix. No residual disease on hysterectomy specimen. No adjuvant therapy recommended.?? 1. 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 Cancer surveillance planning/recommendations [...] user Ruby Vences MD Copy to:??Shyam Garcia LIEUTENANT FIREFIGHTER, CHARGEBACK SPECIALIST FAX Flaquita Suarez MD (Referring) Electronically signed by Ruby Vences MD 12/02/2022 16:11 CDT
--- OUTSIDE RECORDS SUMMARY | 2024-12-23 17:49 | XMS_ITS | CCD ---
Author Name Interface, [id number] lity Address [address] [facility] [address] [place] [address] Organization [facility] Address [address] [facility] [address] [place] [address] Care Team Providers Care Club Room Attendant Name Role Phone Vangie [place], Ruby Unavailable Unavailable Allergies and Adverse Reactions Medication/Group Name Reaction Severity Date Penicillins 12/02/2022 avocado 12/02/2022 Care Plan Date Type Value 01/12/2024 APPOINTMENT OV 30 MIN 01/04/2024 APPOINTMENT OUTSIDE TEST 5 M IN 12/31/[address] [facility] CT chest/abdomen /pelvis w/ contrast Reason for Visit OV 30 MIN Encounters Date Name 01/04/2024 OUTSIDE TEST 5 MIN Diagnostic Results Date Type Test Units Lower Limit Upper Limit Result Flag Comments Status Ordered By Specimen Source Lab [place] [facility] [place] See attache rodriguez Medications Date [...] Name Instructions Status 12/31/2023 Physician Order RTC FACILITIES PROJECT MANAGER/PA See Marissa Aranda with CT scan results Ordered 12/31/[address] chest/abdomen /pelvis w/ contrast New abdominal pain - evaluate for cancer recurrenceTo be done at [facility] Ordered Social History Date Name Value 01/11/2024 Sex Female Sexual Orientation Choose not to disclose 11/26/2024 Gender Identity Identifies as fe male
[2024-12-23 17:54] LABS: Procalcitonin* 0.04 ng/mL (<0.50)
== END 2024-12-23 18:51 | disposition home or self-care (01) ==
PROVIDERS: Emergency Provider Family Medicine; PCP Nurse Practitioner Family
DX: R10.9 Unspecified abdominal pain (principal); Q43.2 Other congenital functional disorders of colon
CPT/HCPCS: 36415; 74177; 80048; 80076; 81001; 83605; 83690; 84145; 85025; 86140; 87086; 96374; 99284; J2270; Q9967

== ENCOUNTER 2025-01-02 10:54 | Outpatient (CLI) | payer BC, SELFPAY ==
--- NOTE | 2025-01-02 10:45 | CRLHL7_ITS ---
For Patients: As a result of the Cures Act, medical imaging exams and procedure reports are released immediately into your electronic medical record. You may view this report before your referring provider. If you have questions, please contact your health care provider. INDICATION: Nontoxic single thyroid nodule COMPARISON: 10/08/2022 TECHNIQUE: Renee scale and color Doppler images were acquired of the thyroid gland. FINDINGS: Isthmus measures 2.2 millimeters. Solid nodule left thyroid lobe measures 9 x 6 x 9 millimeters, hyperechoic, TR 3. Hypoechoic nodule left thyroid lobe measures 9 x 5 x 7 millimeters, TR 4. Solid heterogeneous nodule left thyroid lobe measures 11 x 7 x 10 millimeters, TR 3. Solid nodule right thyroid lobe measures 18 x 11 x 11 millimeters, TR 4, similar in retrospect. Solid nodule right thyroid lobe measures 12 x 8 x 9 millimeters, TR 4. Additional TR 4 solid nodule right thyroid lobe measures 12 x 8 x 15 millimeters. The right lobe measures 4.7 x 1.6 x 2.0 cm and the left lobe measures 5.7 x 1.4 x 1.7 cm in size. The color Doppler images demonstrate normal vascularity. There is no evidence of cervical lymphadenopathy or parathyroid mass. IMPRESSION: Multiple bilateral thyroid nodules, not significantly changed. Dictated by Frederic Christina MD @ 01/02/2025 8:47:35 PM (Electronically Signed)
== END 2025-01-02 10:55 | disposition home or self-care (01) ==
LOC: US 10:55
PROVIDERS: PCP Nurse Practitioner Family; Visit Provider Nurse Practitioner Family
DX: E04.1 Nontoxic single thyroid nodule (principal)
CPT/HCPCS: 76536

== ENCOUNTER 2025-01-11 12:04 | Outpatient (CLI) | payer BC, SELFPAY ==
--- NOTE | 2025-01-11 13:00 | CRLHL7_ITS ---
For Patients: As a result of the Century Cures Act, medical imaging exams and procedure reports are released immediately into your electronic medical record. You may view this report before your referring provider. If you have questions, please contact your health care provider. INDICATION: LEFT SIDED ENLGED CERVICAL LYMPH NODE COMPARISON: Ultrasound thyroid 01/02/2025 TECHNIQUE: A CT volumetric acquisition was performed of the neck during intravenous infusion of 75 cc Isovue 370 nonionic intravenous contrast. Please note that all CT scans at this facility use dose modulation, iterative reconstruction, and/or weight-based dosing when appropriate to reduce radiation dose to as low as reasonably achievable. FINDINGS: The CT images demonstrate normal aeration of the mastoid air cells and middle ear cavities. The paranasal sinuses are clear. The nasopharynx appears normal. The parotid and submandibular glands are of normal size and have uniform enhancement. The oropharynx appears normal. The valleculae, epiglottis, aryepiglottic folds and piriform sinuses appear normal. There is a normal appearance of the larynx and subglottic trachea. Multiple nodules in the thyroid previously evaluated. There is no evidence of lymphadenopathy within the anterior and posterior cervical triangles or within the supraclavicular region. Normal jugulodigastric lymph nodes bilaterally. Degenerative disc disease C5-6. No fracture. Lung apices clear. IMPRESSION: No cervical adenopathy. Please note that all CT scans at this facility use dose modulation, iterative reconstruction, and/or weight-based dosing when appropriate to reduce radiation dose to as low as reasonably achievable. Dictated by Frederic Christina MD @ 01/11/2025 12:56:14 PM (Electronically Signed)
== END 2025-01-11 12:05 | disposition home or self-care (01) ==
LOC: CT 12:04
PROVIDERS: PCP Nurse Practitioner Family; Visit Provider Nurse Practitioner Family
DX: R59.0 Localized enlarged lymph nodes (principal)
CPT/HCPCS: 70491; Q9967

== ENCOUNTER 2025-01-16 09:57 | Outpatient (CLI) | payer BC, SELFPAY | END 2025-01-16 09:58 | disposition home or self-care (01) | LOC: LKVREF 10:01 | PROVIDERS: PCP Nurse Practitioner Family; Visit Provider Physician Assistant | DX: R59.0 Localized enlarged lymph nodes (principal) | CPT/HCPCS: 82306; 86038; 86235; 86431; 86618 ==